=== PATIENT | male | born 1955 | race Caucasian/White ===

== ENCOUNTER 2020-11-29 10:42 | Emergency (ER) | payer MEDICARE, SELFPAY ==
[2020-11-29] VITALS (24 sets, daily range): BP systolic 82–137; BP diastolic 56–94; PULSE 77–101; RESP 14–25; TEMP 36.1–36.8; O2SAT 97–100
--- NOTE | ~2020-11-29 | XR_ITS ---
EXAMINATION: XR abdomen NG/feed tube insert EXAM DATE: 11/29/2020 15:41 INDICATION: Orogastric tube placement. TECHNIQUE: Frontal projection(s) of the abdomen for interpretation. There is no prior study for castillo lucero. FINDINGS: Feeding tube tip and side-port project over left upper quadrant, adequate. Some elevation of the left hemidiaphragm, but lung bases appear clear. Nonspecific upper abdominal bowel gas pattern . IMPRESSION: Orogastric tube in position. Reviewed, dictated and finalized at location G.
--- NOTE | 2020-11-29 10:54 | ECG_ITS ---
Measurements Intervals [place] Rate: 88 P: 72 ME: 169 QRS: 9 QRSD: 100 T: 109 QT: 338 QTc: 409 Interpretive Statements SINUS RHYTHM ST-T WAVE ABNORMALITY IN ANTEROLATERAL LEADS- CONSIDER ISCHEMIA BASELINE ARTIFACT- I, II, III, AVR, AVL, AVF, V1-V6 ABNORMAL ECG Electronically Signed On 11-29-2020 14:08:57 CDT by Mateus Correia D.O.
--- NOTE | 2020-11-29 11:11 | PC.NURSE ---
called lab and talked to brianna added on a Hepatic at 1112
[2020-11-29 11:16] LABS: Basophils Percent Auto 0.3 % (0.2-1.2); Eosinophils Percent Auto 0.2 % (0-4.4); Hematocrit 21.8 % (42.0-52.0); Hemoglobin 7.4 g/dL (14.0-18.0); Immature Granulocyte Absolute 0.08 K/mm3 (0.00-0.031); Immature Granulocyte Percent A 0.8 % (0-0.5); Lymphocytes Absolute Auto 3.69 K/mm3 (0.9-3.2); Lymphocytes Percent Auto 38.8 % (18.3-44.2); Mean Corpuscular HGB Conc 33.9 g/dl (32-36); Mean Corpuscular Hemoglobin 31.8 pg (26-34); Mean Corpuscular Volume 93.6 fl (80-100); Mean Platelet Volume 9.2 fl (7.4-10.4); Monocytes Absolute Auto 0.8 K/mm3 (0.1-0.6); Monocytes Percent Auto 7.9 % (2.6-8.5); Platelet Count Result 252 k/mm3 (150-375); Red Blood Count 2.33 M/mm3 (4.6-6.20); Red Cell Distribution Width 14.8 % (11.5-14.5); White Blood Count 9.5 K/mm3 (4.5-10.0)
[2020-11-29] MEDS: SODIUM CHLORIDE 0.9% IV 1,000 ML 999 ML IV CONT ×2 (11:20→13:50)
[2020-11-29 11:27] LABS: Anion Gap 6 mmol/L (8-16); Blood Urea Nitrogen 32 mg/dL (9-20); Calcium 8.6 mg/dL (8.4-10.2); Carbon Dioxide 27 mmol/L (22-30); Chloride 93 mmol/L (98-107); Estimated CRCL calculation 52 ml/min; Estimated Glomerular Filt Rate > 60; Glucose 100 mg/dL (75-110); Potassium 4.4 mmol/L (3.4-5.0); Sodium 126 mmol/L (137-145)
[2020-11-29 11:38] LABS: Lactic Acid Reflex 2.3 mmol/L (0.7-2.1)
[2020-11-29 11:47] LABS: Alanine Aminotransferase 62 U/L (4-50); Albumin Level 2.9 g/dL (3.5-5.1); Alkaline Phosphatase 78 U/L (38-126); Aspartate Amino Transferase 93 U/L (17-59); Bilirubin,Total 0.8 mg/dL (0.2-1.3)
[2020-11-29] MEDS: PANTOPRAZOLE SODIUM IV 40 MG VIAL 80 MG IV PUSH (11:56)
[2020-11-29 12:47] LABS: Add Urine Microscopic? NO; Appearance Urine Clear (Clear); Bilirubin Urine Negative (Negative); Blood Urine Negative (Negative); Color Urine Yellow (Yellow); Glucose Urine UA Negative (Negative); Ketones Urine Negative (Negative); Leukocyte Esterase Ur Negative LEU/UL (Negative); Nitrate Urine Negative (Negative); Protein Urine Negative (Negative); Specific Grav Ur 1.011 (1.001-1.035); Urobilinogen Urine Negative mg/dL (<2.0)
--- NOTE | 2020-11-29 13:23 | PC.NURSE ---
Patient requesting his step mother be called and updated with plan of care: Marcelina (Vel) [phone]
[2020-11-29] MEDS: SODIUM CHLORIDE 0.9% IV 250 ML 30 ML IV CONT (13:49)
--- NOTE | 2020-11-29 14:21 | PC.NURSE ---
Patient up to use urinal. Patient reports increased dyspnea with this exertion. He was assisted back onto the stretcher. No change in LOC noted. Patient tells me he uses oxygen at home at night and requests some oxygen. This was provided by nasal cannula at 2 liters. Patients Normal saline bolus was discontinued and LEEANNE ye was notified.
[2020-11-29 14:26] LABS: Reflex Lactic Acid Yes or No Add Lactic
[2020-11-29 15:40] LABS: Lactic Acid 3.9 mmol/L (0.7-2.1)
--- NOTE | 2020-11-29 15:43 | PC.NURSE ---
Benzocaine spray was used per verbal order of the ED PA to assist with NG tube placement.
--- NOTE | 2020-11-29 15:47 | ED.GENADULT ---
HPI - General Adult General Chief complaint: Recheck/Abnormal Lab/Rx Stated complaint: Low BP Time Seen by Provider: 11/29/20 11:10 Source: patient, family and RN notes reviewed Mode of arrival: ambulatory Limitations: no limitations History of Present Illness HPI narrative: Patient is a 65-year-old male who presents for evaluation of low blood pressures that have been noticed over the last several days at home patient notes he has also felt weak during this. Patient denies known etiology for this patient states that he has been taking ibuprofen for low back pain and also notes that he thought that it might be related to the muscle relaxer his doctor gave to him for his low back pain over the last week. Patient denies rectal bleeding melena fever chills URI symptoms Related Data Home Medications Medication Instructions Recorded Confirmed aspirin 81 mg chewable tablet 81 mg PO DAILY 05/23/20 11/21/20 metoprolol succinate 25 mg 25 mg PO BID 05/23/20 11/21/20 tablet,extended release 24 hr atorvastatin 20 mg tablet 20 mg PO DAILY 06/18/20 11/21/20 Allergies Allergy/AdvReac Type Severity Reaction Status Date / Time lorazepam [From Ativan] AdvReac Hallucinati Verified 11/29/20 10:53 ng Review of Systems Review of Systems: All systems reviewed & are unremarkable except as noted in HPI and below PMFSH Past Medical History Medical History (Updated 11/29/20 @ 19:25 by Patricio Nice PA-C) Arthralgia Bilateral hand numbness BMI 23.0-23.9, adult Chronic low back pain COPD (chronic obstructive pulmonary disease) Coronary artery disease Surgical History Surgical History History of cataract surgery Family History Family History Father , lung cancer Cancer Mother No problems noted. Sibling No problems noted. 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 HEAD: Normocephalic, atraumatic. EYES: PERRLA and EOMI. ENT: Nares clear, no rhinorrhea or epistaxis. Mucous membranes moist. NECK: Supple. No adenopathy or masses. CHEST: Clear to auscultation. No respiratory distress. No wheezes rales or rhonchi HEART: Regular rate and rhythm. No murmur heard. Normal peripheral pulses. ABDOMEN: Soft, nontender, nondistended, guaiac positive stools with melena around the rectum EXTREMITIES: Normal range of motion. No edema. SKIN: Warm, dry, no rash. NEURO: No focal deficits. Alert and oriented x3. Cranial nerves II through XII grossly intact PSYCH: Normal mood and affect. Course Reevaluation(s) Reevaluation #1: Patient resting in the room after the first unit of blood, patient with normal lung sounds and improvement of blood pressure and condition after the first unit of blood Date: 11/29/20 Time: 15:51 Reevaluation #2: Patient will be transferred to [facility], patient received 2 units of blood in the emergency department was given Lasix after the first. Patient hemodynamically stable with normalized blood pressure. Patient in the room appearing much better at this time resting comfortably Date: 11/29/20 Time: 19:23 Consultations Consultation #1: Called several of the manufacturing advisor at [facility] none of which are available this weekend to
[2020-11-29] MEDS: FUROSEMIDE INJ 40 MG/4 ML VIAL 20 MG IV PUSH (16:50)
--- NOTE | 2020-11-29 20:17 | PC.NURSE ---
called [place] for ETA update. ETA [id number] Called [facility] to request transport. declinded -No ALS truck tonight. Called [facility] to request transport. declined - Only 1 truck on tonight Called [facility] to request transport. declined. All trucks busy - Can call back in a few hours to see if a truck is available.
--- NOTE | 2020-11-29 22:25 | PC.NURSE ---
called [facility] for ETA update. ETA [id number]
--- NOTE | 2020-11-29 22:58 | PC.NURSE ---
[facility] here.
== END 2020-11-29 22:57 | disposition short-term general hospital (02) ==
PROVIDERS: Emergency Medicine Emergency Medical Services; Emergency Provider Emergency Medicine; PCP Family Medicine
DX: K92.2 Gastrointestinal hemorrhage, unspecified (principal); D64.9 Anemia, unspecified; J44.9 Chronic obstructive pulmonary disease, unspecified; I25.10 Atherosclerotic heart disease of native coronary artery without angina pectoris; M54.5 Low back pain; G89.29 Other chronic pain; Z98.49 Cataract extraction status, unspecified eye; Z79.82 Long term (current) use of aspirin; F17.210 Nicotine dependence, cigarettes, uncomplicated; R94.31 Abnormal electrocardiogram [ECG] [EKG]
CPT/HCPCS: 36415; 36430; 51701; 80048; 80076; 81003; 83605; 85025; 85610; 86850; 86900; 86901; 86920; 93005; 96365; 96366; 96375; 96376; 99285; A9270; C9113; J1940; J7030; J7050; J7060; P9016

== ENCOUNTER 2021-02-05 09:11 | Outpatient (CLI) | payer MEDICARE, SELFPAY ==
--- NOTE | 2021-02-05 11:00 | NEURO_ITS ---
Impression: # Complains of numbness of hands. # Bilateral Carpal Tunnel Syndrome. # Bilateral ulnar neuropathy; right non-localizing around the elbow and left localizing across the elbow. # Needle/EMG exam abnormal. Nerve Conduction Studies Anti Sensory Summary Table Stim Site NR Peak (ms) P-T Amp (?V) Site1 Site2 Delta-P (ms) Dist (cm) Peyman (m/s) Left Median Anti Sensory (2-3nd Digit) Wrist 4.9 13.4 Wrist 2-3nd Digit 4.9 14.0 29 Wrist 4.9 20.4 Wrist 2-3nd Digit 4.9 14.0 29 Right Median Anti Sensory (2-3nd Digit) Wrist 5.1 28.4 Wrist 2-3nd Digit 5.1 14.0 27 Wrist 5.2 20.8 Wrist 2-3nd Digit 5.1 14.0 27 Left Radial Anti Sensory (Base 1st Digit) Wrist 2.2 21.2 Wrist Base 1st Digit 2.2 0.0 Right Radial Anti Sensory (Base 1st Digit) Wrist 3.1 16.1 Wrist Base 1st Digit 3.1 0.0 Left Ulnar Anti Sensory (5th Digit) Wrist 3.4 40.7 Wrist 5th Digit 3.4 14.0 41 Right Ulnar Anti Sensory (5th Digit) Wrist 3.5 19.7 Wrist 5th Digit 3.5 14.0 40 Motor Summary Table Stim Site NR Onset (ms) O-P Amp (mV) Site1 Site2 Delta-0 (ms) Dist (cm) Peyman (m/s) Left Median Motor (Abd Poll Brev) Wrist 5.9 1.6 Elbow Wrist 5.9 30.0 51 Elbow 11.8 1.9 Right Median Motor (Abd Poll Brev) Wrist 5.2 1.8 Elbow Wrist 5.5 28.0 51 Elbow 10.7 1.5 Left Ulnar Motor (Abd Dig Minimi) Wrist 3.3 5.2 A Elbow Wrist 6.5 29.0 45 A Elbow 9.8 4.7 B Elbow Wrist 4.3 24.0 56 B Elbow 7.6 4.7 Right Ulnar Motor (Abd Dig Minimi) Wrist 3.6 5.7 A Elbow Wrist 6.0 28.0 47 A Elbow 9.6 4.6 B Elbow Wrist 4.5 21.0 47 B Elbow 8.1 3.2 F Wave Studies NR F-Lat (ms) L-R F-Lat (ms) Left Median (Mrkrs) (Abd Poll Brev) 30.70 0.76 Right Median (Mrkrs) (Abd Poll Brev) 29.94 0.76 Left Ulnar (Mrkrs) (Abd Dig Min) 31.37 0.55 Right Ulnar (Mrkrs) (Abd Dig Min) 30.82 0.55 EMG Side Muscle Nerve Root Ins Act Fibs Amp Dur Recrt Comment Right 1stDorInt Ulnar C8-T1 Nml Nml Nml >12ms Reduced Right Ext Indicis Radial (Post Int) C7-8 Nml Nml Nml Nml Nml Right Ext Digitorum Radial (Post Int) C7-8 Nml Nml Nml Nml Nml Right BrachioRad Radial C5-6 Nml Nml Nml Nml Nml Right PronatorTeres Median C6-7 Nml Nml Nml Nml Nml Right Abd Poll Brev Median C8-T1 Nml Nml Nml >12ms Reduced Left 1stDorInt Ulnar C8-T1 Nml Nml Nml >12ms Reduced Left Ext Indicis Radial (Post Int) C7-8 Nml Nml Nml Nml Nml Left Ext Digitorum Radial (Post Int) C7-8 Nml Nml Nml Nml Nml Left BrachioRad Radial C5-6 Nml Nml Nml Nml Nml Left PronatorTeres Median C6-7 Nml Nml Nml Nml Nml Left Abd Poll Brev Median C8-T1 Nml Nml Nml >12ms Reduced MTDD
== END 2021-02-05 09:12 | disposition home or self-care (01) ==
PROVIDERS: PCP Family Medicine; Visit Provider Family Medicine
DX: G56.03 Carpal tunnel syndrome, bilateral upper limbs (principal); G56.23 Lesion of ulnar nerve, bilateral upper limbs; R20.2 Paresthesia of skin
CPT/HCPCS: 95886; 95911

== ENCOUNTER 2022-10-26 08:44 | Outpatient (CLI) | payer MEDICARE, SELFPAY ==
[2022-10-26 10:12] LABS: Basophils Absolute Auto 0.1 K/mm3 (0.0-0.1); Basophils Percent Auto 1.5 % (0.2-1.2); Eosinophils Absolute Auto 0.3 K/mm3 (0-0.3); Eosinophils Percent Auto 5.7 % (0-4.4); Hematocrit 39.4 % (42.0-52.0); Hemoglobin 12.9 g/dL (14.0-18.0); Immature Granulocyte Absolute 0.02 K/mm3 (0.00-0.031); Immature Granulocyte Percent A 0.4 % (0-0.5); Lymphocytes Absolute Auto 1.79 K/mm3 (0.9-3.2); Mean Corpuscular HGB Conc 32.7 g/dl (32-36); Mean Corpuscular Hemoglobin 32.3 pg (26-34); Mean Corpuscular Volume 98.7 fl (80-100); Monocytes Absolute Auto 0.7 K/mm3 (0.1-0.6); Monocytes Percent Auto 12.2 % (2.6-8.5); Neutrophils Absolute Auto 2.6 K/mm3 (1.3-6.7); Neutrophils Percent Auto 47.2 % (45.5-73.1); Platelet Count Result 280 k/mm3 (150-375); Red Blood Count 3.99 M/mm3 (4.6-6.20); Red Cell Distribution Width 15.9 % (11.5-14.5); White Blood Count 5.4 K/mm3 (4.5-10.0)
[2022-10-26 10:27] LABS: Alanine Aminotransferase 28 U/L (6-50); Alkaline Phosphatase 220 U/L (38-126); Anion Gap 6 mmol/L (8-16); Aspartate Amino Transferase 59 U/L (17-59); Bilirubin,Total 1.8 mg/dL (0.2-1.3); Blood Urea Nitrogen 15 mg/dL (9-20); Calcium 9.2 mg/dL (8.4-10.2); Carbon Dioxide 28 mmol/L (22-30); Chloride 99 mmol/L (98-107); Cholesterol 203 mg/dL (0-200); Estimated Glomerular Filt Rate > 60; Glucose 94 mg/dL (65-110); HDL Direct 92 mg/dL; Sodium 133 mmol/L (137-145); Triglycerides 187 mg/dL (<150)
[2022-10-26 10:39] LABS: LDL Cholesterol Direct 90 mg/dL
[2022-10-26 10:56] LABS: Prostate Specific Antigen 1.9 ng/mL (< OR = 4.0)
== END 2022-10-26 08:45 | disposition home or self-care (01) ==
LOC: ANHLAB 08:45
PROVIDERS: PCP Family Medicine; Visit Provider Physician Assistant Medical
DX: I11.0 Hypertensive heart disease with heart failure (principal); I50.20 Unspecified systolic (congestive) heart failure; E78.5 Hyperlipidemia, unspecified; R73.01 Impaired fasting glucose; M25.50 Pain in unspecified joint; Z12.5 Encounter for screening for malignant neoplasm of prostate
CPT/HCPCS: 36415; 80053; 80061; 84153; 84443; 85025; G0103

== ENCOUNTER 2022-12-04 08:44 | Outpatient (CLI) | payer MEDICARE, SELFPAY ==
[2022-12-04 09:52] LABS: Hematocrit 41.3 % (42.0-52.0); Hemoglobin 13.9 g/dL (14.0-18.0); Mean Corpuscular HGB Conc 33.7 g/dl (32-36); Mean Corpuscular Hemoglobin 32.9 pg (26-34); Mean Corpuscular Volume 97.6 fl (80-100); Mean Platelet Volume 9.7 fl (7.4-10.4); Platelet Count Result 248 k/mm3 (150-375); Red Blood Count 4.23 M/mm3 (4.6-6.20); Red Cell Distribution Width 14.1 % (11.5-14.5); White Blood Count 6.4 K/mm3 (4.5-10.0)
== END 2022-12-04 08:45 | disposition home or self-care (01) ==
PROVIDERS: PCP Family Medicine; Visit Provider Nurse Practitioner Family
DX: E87.1 Hypo-osmolality and hyponatremia (principal); M25.50 Pain in unspecified joint
CPT/HCPCS: 36415; 85027

== ENCOUNTER 2025-01-23 10:36 | Outpatient (CLI) | payer MEDICARE, SELFPAY ==
--- NOTE | ~2025-01-23 | US_ITS ---
Clinical history:Mass on neck EXAM:Ultrasound soft tissue head and neck. History of neck surgery in May. TECHNIQUE:Multiple static grayscale images were obtained of the area of palpable concern along the right side of the neck. Comparisons:None available FINDINGS: There is a 5.2 x 5.3 x 4.9 cm heterogeneous mass in area of palpable concern along the right side of the neck. There is internal color Doppler flow. IMPRESSION: 1.There is a 5.2 x 5.3 x 4.9 cm heterogeneous mass in area of palpable concern along the right side of the neck. There is internal vascular flow. A CT of the soft tissues of the neck with contrast is recommended for further assessment. Reviewed, dictated and finalized at location Q.
[2025-01-23 11:15] LABS: Hematocrit 34.2 % (42.0-52.0); Hemoglobin 10.7 g/dL (14.0-18.0); Immature Granulocyte Percent A 0.1 % (0-0.5); Lymphocytes Absolute Auto 1.89 K/mm3 (0.9-3.2); Mean Corpuscular HGB Conc 31.3 g/dl (32-36); Mean Corpuscular Hemoglobin 25.7 pg (26-34); Mean Corpuscular Volume 82.2 fl (80-100); Nucleated Red Blood Cells Absolute Auto 0.000 K/mm3 (0.0-0.012); Nucleated Red Blood Cells Perc 0.0 % (0.0-0.2); Platelet Count Result 287 k/mm3 (150-375); Red Blood Count 4.16 M/mm3 (4.6-6.20); White Blood Count 7.9 K/mm3 (4.5-10.0)
[2025-01-23 11:39] LABS: Alanine Aminotransferase 13 U/L (6-50); Albumin Level 3.7 g/dL (3.5-5.1); Alkaline Phosphatase 113 U/L (38-126); Anion Gap 5 mmol/L (4-12); Aspartate Amino Transferase 27 U/L (17-59); Bilirubin,Total 0.6 mg/dL (0.2-1.3); Blood Urea Nitrogen 10 mg/dL (9-20); Calcium 9.1 mg/dL (8.4-10.2); Carbon Dioxide 28 mmol/L (22-30); Chloride 100 mmol/L (98-107); Cholesterol 159 mg/dL (0-200); Estimated Glomerular Filt Rate > 60; Glucose 93 mg/dL (65-110); HDL Direct 57 mg/dL; Sodium 133 mmol/L (137-145); Total Protein 7.4 g/dL (6.3-8.2); Triglycerides 59 mg/dL (<150)
[2025-01-23 11:47] LABS: Potassium 4.1 mmol/L (3.4-5.0)
[2025-01-23 12:14] LABS: Prostate Specific Antigen 6.6 ng/mL (< OR = 4.0); Thyroid Stimulating Hormone 3.410 uIU/mL (0.465-4.680)
--- OUTSIDE RECORDS SUMMARY | 2025-01-23 12:19 | XMS_ITS | Clinical Summary ---
Author Organization [facility] Address [address] [place] [address] Phone Care Team Providers Care Welfare Supervisor Name Role Phone Unavailable Primary Care Provider Unavailabl e Allergies Active Allergy Reactions Criticality Noted Date Comments Lorazepam Hallucination Medium 06/13/2024 Medications amiodarone (CORDARONE) 200 mg tablet Take 1 Tablet by mouth daily. 4 Active atorvastatin (LIPITOR) 20 mg tablet Take 20 mg by mouth daily. 2 Active folic acid (FOLVITE) 1 mg tablet Take 1 Tablet by mouth daily. 4 Active metoprolol succinate (TOPROL XL) 25 mg Extended Release 24 hour tablet Take 25 mg by mouth daily. Active pantoprazole (PROTONIX) 40 mg Tablet, Delayed Release (E.C.) Take 40 mg by mouth daily in the morning. 4 Active furosemide (LASIX) 20 mg tablet Take 20 mg by mouth daily. Active Breztri Aerosphere 160 mcg-9mcg-4.8mcg/ actuation HFA aerosol inhaler Take 2 Puffs by inhalation 2 times daily. Active acetaminophen (TYLENOL) 325 mg tablet Take 2 Tablets (650 mg) by mouth every 6 hours as needed for Other (See Comment) (See admin instructions). 5 Active cetirizine (ZyrTEC) 10 mg tablet Take 1 Tablet (10 mg) by mouth daily. 5 Active guaiFENesin (ROBITUSSIN) 100 mg/5 mL solution Take 10 mL (200 mg) by mouth every 4 hours as needed for Cough. 5 Active multivitamin tx with iron and folic acid tablet 18-400 mg-mcg Tablet Take 1 Tablet by mouth daily. 5 Active polyethylene glycol (MIRALAX) 17 gram Powder in Packet Take 1 Packet (17 Grams) by mouth 1 time daily as needed for Constipation. 5 Active sennosides-docus ate sodium (SENNA-S) 8.6-50 mg tablet Take 1 Tablet by mouth 2 times daily. 60 Tablet 5 Active thiamine mononitrate (VITAMIN B-1) 100 mg tablet Take 1 Tablet (100 mg) by mouth daily. 30 Tablet 5 Active HYDROcodone-acet aminophen (NORCO) 5-325 mg tabletIndication s:Closed wedge compression fracture of L1 vertebra, initial encounter ([facility]) Take 1 Tablet by mouth every 4 hours as needed for Pain, Break-Through. Max Daily Amount: 6 Tablets 90 Tablet 5 Active Active Problems Problem Noted Date Diagnosed Date Odontoid fracture 06/21/2024 GERD (gastroesophageal reflux disease) 5 Closed L1 vertebral fracture 06/14/2024 Elevated LFTs 06/14/2024 Alcohol dependence 06/14/2024 Leukocytosis (leucocytosis) 06/14/2024 Chronic anemia 06/14/2024 Hyponatremia 06/14/2024 Hypokalemia 06/14/2024 Acute pancreatitis 06/14/2024 Protein-calorie malnutrition, moderate Chronic obstructive pulmonar y disease with acute exacerbation 11/30/2020 Benign hypertension 09/08/2018 Encounters Date Type Department Care Team Description 01/09/2025 External Device Data [facility] ABSTRACTION Provider, Abstract 12/12/2024 External Device Data [facility] ABSTRACTION Provider, Abstract 11/07/2024 External Device Data [facility] ABSTRACTION Provider, Abstract 10/24/2024 External Device Data [facility] ABSTRACTION Provider, Abstract from Last 3 Months Social History Tobacco Use Types Packs/Day Years Used Date Smoking Tobacco: Former Cigarettes Q uit: 2020 Tobacco Cessation:Counseling Given: Not Answered Alcohol Use Standard Drinks/Week Comments Yes 0 (1 standard drink = 0.6 oz pur e alcohol) Feeling Safe Answer Date Recorded Are you in a relationship wi th someone who hurts you emotionally and/or physically? No 06/20/2024 Food Insecurity Answer Date Recorded Patient needs follow up regardin 09/12/2024 Transportation Needs Answer Date Record ed Patient needs follow up regardin 09/12/2024 Housing Stability Answer Date Recorded Social/Environmental Concerns No concerns Utility Needs Answer Date Recorded Patient needs follow up regardin 09/12/2024 Sex and Gender Information Value Date Recorded Sex Assigned at Not on file Legal Sex Male 1:53 PM VOLTAGE INSPECTOR Gender Identity Not on file Sexual Orientation Not on file Last Filed Vital Signs Vital Sign Reading Time Taken Comments Blood Pressure 104/61 07/01/2024 8:56 AM VOLTAGE INSPECTOR Pulse 98 07/01/2024 8:56 AM VOLTAGE INSPECTOR Temperature 36.9 C (98.4 F) 06/30/2024 9:06 PM VOLTAGE INSPECTOR Respiratory Rate 18 06/30/2024 9:06 PM VOLTAGE INSPECTOR Oxygen Saturation 94% 07/01/2024 8:56 AM VOLTAGE INSPECTOR Inhaled Oxygen Concentration - - Weight 65.8 kg (145 lb) 07/01/2024 9:00 AM VOLTAGE INSPECTOR Height 167.6 cm (5' 6) 06/22/2024 9:00 AM VOLTAGE INSPECTOR Body Mass Index 23.4 06/22/2024 9:00 AM VOLTAGE INSPECTOR Plan of Treatment Health Maintenance Due Date Last Done Comments DTAP/TDAP/TD VACCINES (1 - Tdap) 1973 PNEUMOCOCCAL VACCINE 50+ YEARS (1 of 2 - PCV) 05/08/19 73 COLORECTAL SCREENING 1999 Colorectal Cancer Screening 1999 FIT-DNA Q 3 years 1999 FIT/FOBT Q 1 year 1999 Flex Sig/CT Colonography Q 5 years 1999 ZOSTER VACCINE (1 of 2) 2004 RSV VACCINE (60+ or ) (1 - Risk 60-74 years 1-dose series) 2014 Abdominal Aortic Aneurysm (AAA) Screening 2019 INFLUENZA VACCINE (#1) 2024 03/19/2017 Medical Devices Implanted Type Area Chinchilla Farmer Device Identifier Shelf Expiration Date Model / Serial / Lot Infuse Protein Kit Xx-Sm [id number] - [id number] Implanted:Qty : 1 on 06/16/2024 by Bennie Murray MD at [facility] Biological N/A: Spine Cervical Anterior [employer] [id number] 03/17/2025 [id number] / / [id number] C Hemostatic Surgiflo 8ml W/ Thrombin 2994 - [id number] Implanted:Qty : 1 on 06/16/2024 by Bennie Murray MD at [facility] Hemostatic N/A: Spine Cervical Anterior [employer] 07/14/2025 [id number] / / [id number] 36mm Screw Implanted:Qty : 1 on 06/16/2024 by Bennie Murray MD at [facility] N/A: Spine Cervical Anterior [employer]- SOFAMOR [employer]ANEK [id number] / LOAD NO 16 / STERILIZE D Description:RE [id number] Insurance MEDICARE PART A AND B Advance Directives For more information, please contact: [phone] * Full Code (Latest Code Status on File) Date Activated Date Inactivated Comments 06/20/2024 4:06 PM 07/01/2024 5:21 PM * Full Code Date Activated Date Inactivated Comments 06/16/2024 6:21 PM 06/20/2024 3:53 PM * Full Code Date Activated Date Inactivated Comments 06/14/2024 3:00 AM 06/16/2024 6:21 PM
--- OUTSIDE RECORDS SUMMARY | 2025-01-23 12:19 | XMS_ITS | Clinical Summary ---
Author Organization [facility] Address [address] [place] [address] Care Team Providers Care Agent Ticketing Gate Name Role Phone Unavailable Primary Care Provider Unavailabl e Source Comments [facility],non-owned Affiliates and Associated Physician Practices is amultiple site organization consisting of ambulatory clinics and hospital sitesin [place], [place], [place] and [place]. This disclosure is being madepursuant to the Care Everywhere program and may not contain all information available regarding this patient. Last updated 18.[facility] Allergies No known active allergies Immunizations Immunization Administration Dates Next Due INFLUENZA VACCINE, QUADR. (F LUZONE; FLULAVAL; FLUARIX; AFLURIA QUADRIVALENT; 6MO+), 0.5 ML (IIV4) 03/19/2017 Social History Tobacco Use Types Packs/Day Years Used Date Smoking Tobacco: Never Assessed Sex and Gender Information Value Date Recorded Sex Assigned at Not on file Legal Sex Male 11:12 AM CDT Gender Identity Not on file Sexual Orientation Not on file Plan of Treatment Health Maintenance Due Date Last Done Comments COLOGUARD (AGES 45-75) - COL ON CA SCREENING 1954 COLON MONITORING 1954 COLONOSCOPY - COLON CA SCREENING 1954 CT COLONOGRAPHY - COLON CA SCREENING 1954 Colorectal Cancer Screening 1954 FIT - COLON CA SCREENING 1954 FLEX SIG - COLON CA SCREENING 1954 LIPID TESTING 1954 HEPATITIS C SCREENING 05/03/1972 DTAP/TDAP/TD VACCINES (1 - Tdap) 1973 PNEUMOCOCCAL VACCINE 50+ (1 of 1 - PCV) 2004 ZOSTER VACCINE (1 of 2) 2004 DEPRESSION SCREENING 05/17/2024 COVID-19 VACCINE ( - 2023-2 5 season) 2025 INFLUENZA VACCINE (#1) 2025 03/19/2017 Respiratory Syncytial Virus (RSV) Vaccine Pt: or over 60 yrs (1 - 1-dose 75+ series) 2029 HEPATITIS B VACCINE Aged Out No longe r eligible based on patient's age to complete this topic HIB VACCINE Aged Out No longer eligi ble based on patient's age to complete this topic HPV VACCINE Aged Out No longer eligi ble based on patient's age to complete this topic MENINGOCOCCAL (Group B) VACC INE SHARED DECISION-MAKING Aged Out No longer eligibl e based on patient's age to complete this topic MENINGOCOCCAL GROUPS A/C/Y/W VACCINE Aged Out No longer eligible b ased on patient's age to complete this topic Insurance [facility]
== END 2025-01-23 10:37 | disposition home or self-care (01) ==
PROVIDERS: PCP Family Medicine; Visit Provider Nurse Practitioner Adult Health
DX: E78.5 Hyperlipidemia, unspecified (principal); I10 Essential (primary) hypertension; Z13.29 Encounter for screening for other suspected endocrine disorder; R22.1 Localized swelling, mass and lump, neck; I50.22 Chronic systolic (congestive) heart failure; Z12.5 Encounter for screening for malignant neoplasm of prostate; R22.0 Localized swelling, mass and lump, head
CPT/HCPCS: 36415; 76536; 80053; 80061; 84153; 84443; 85025; G0103

== ENCOUNTER 2025-01-24 10:06 | Outpatient (CLI) | payer MEDICARE, SELFPAY ==
--- NOTE | ~2025-01-24 | CT_ITS ---
EXAMINATION: CT soft tissue neck w con DATE: 01/24/2025 10:50 INDICATION: Neck mass TECHNIQUE: Computed tomography (CT) of the neck was performed with 75 mL Omnipaque-350 intravenous contrast. Automated exposure control and iterative reconstruction technique were employed. The dose-length product was 421.25 mGy-cm. COMPARISON: Ultrasound dated 01/23/2025 FINDINGS: There is a 5.2 x 3.7 x 5.2 cm mass positioned deep to the angle of the mandible extending caudally along the anterior margin of the right jugular vein which is concerning for malignancy either lymphoma or metastatic disease. No other abnormal masses or pathologically enlarged lymph nodes identified. Changes of bilateral intraocular lens replacement. Orbits are otherwise normal. The paranasal sinuses are clear. Trace left mastoid effusion. The right mastoid air cells and bilateral middle ear cavities are clear. Submandibular and parotid glands are normal and symmetric. 5 mm coarse calcification within the right thyroid lobe. The contrast opacified right jugular vein occupies only a portion of the lateral aspect of the jugular foramen, unclear whether the unopacified portion of the foramen represents a filling defect within the vessel or a soft tissue density lesion along side the jugular vein. There are a chronic calcification at the bilateral carotid bulbs without hemodynamically significant stenosis. There are a few small dystrophic calcifications at the right lingual tonsil. Airway is unremarkable. Mild emphysema in the visualized upper lungs. Visualized superior mediastinum is unremarkable. Moderate to severe cervical spondylosis. IMPRESSION: 1. Instrumented 5.2 x 3.7 x 5.2 cm mass in the right neck position deep to the angle of the mandible along the anterior margin of the right internal jugular vein which concerning for malignancy including lymphoma or metastatic disease. Recommend ultrasound-guided core needle biopsy. 2. Contrast enhancement of the right internal jugular vein occupies only the lateral third of the jugular foramen which suggests either internal thrombosis or external nonspecific peripheral compressing mass. Could consider pre and postcontrast MRI for further evaluation. Reviewed, dictated and finalized at location A. IMPRESSION: 1. Instrumented 5.2 x 3.7 x 5.2 cm mass in the right neck position deep to the angle of the mandible along the anterior margin of the right internal jugular v ein which concerning for malignancy including lymphoma or metastatic disease. R ecommend ultrasound-guided core needle biopsy. 2. Contrast enhancement of the right internal jugular vein occupies only the la teral third of the jugular foramen which suggests either internal thrombosis or external nonspecific peripheral compressing mass. Could consider pre and postc ontrast MRI for further evaluation.
--- OUTSIDE RECORDS SUMMARY | 2025-01-24 10:57 | XMS_ITS | Clinical Summary ---
Author Organization [facility] Address [address] [place] [address] Phone Care Team Providers Care Wastewater Project Manager Name Role Phone Unavailable Primary Care Provider [...] compression fracture of L1 vertebra, initial encounter ([facility]) Take 1 Tablet by mouth every 4 [...] on file Legal Sex Male 1:53 PM SUPERSONIC ENGINEER Gender Identity Not on file Sexual Orientation Not on file Last Filed Vital Signs Vital Sign Reading Time Taken Comments Blood Pressure 104/61 07/01/2024 8:56 AM SUPERSONIC ENGINEER Pulse 98 07/01/2024 8:56 AM SUPERSONIC ENGINEER Temperature 36.9 C (98.4 F) 06/30/2024 9:06 PM SUPERSONIC ENGINEER Respiratory Rate 18 06/30/2024 9:06 PM SUPERSONIC ENGINEER Oxygen Saturation 94% 07/01/2024 8:56 AM SUPERSONIC ENGINEER Inhaled Oxygen Concentration - - Weight 65.8 kg (145 lb) 07/01/2024 9:00 AM SUPERSONIC ENGINEER Height 167.6 cm (5' 6) 06/22/2024 9:00 AM SUPERSONIC ENGINEER Body Mass Index 23.4 06/22/2024 9:00 AM SUPERSONIC ENGINEER Plan of Treatment Health Maintenance Due Date [...] 2024 03/19/2017 Medical Devices Implanted Type Area Wash House Supervisor Device Identifier Shelf Expiration Date Model / Serial / Lot Infuse Protein Kit Xx-Sm [id number] - [id number] Implanted:Qty : 1 on 06/16/2024 by Bennie Murray MD at [facility] Biological N/A: Spine Cervical Anterior [employer] [id number] 03/17/2025 [id number] / / [id number] C Hemostatic Surgiflo 8ml W/ Thrombin 2994 - [id number] Implanted:Qty : 1 on 06/16/2024 by Bennie Murray MD at [facility] Hemostatic N/A: Spine Cervical Anterior [employer] 07/14/2025 [id number] / / [id number] 36mm Screw Implanted:Qty : 1 on 06/16/2024 by Bennie Murray MD at [facility] N/A: Spine Cervical Anterior [employer] [id number] / LOAD NO 16 / STERILIZE D Description:RE [id number] Insurance MEDICARE PART A AND B Advance Directives For more information, please contact: [phone] * Full Code (Latest Code Status on File) Date Activated Date Inactivated Comments 06/20/2024 4:06 PM 07/01/2024 5:21 PM * Full Code Date Activated Date Inactivated Comments 06/16/2024 6:21 PM 06/20/2024 3:53 PM * Full Code Date Activated Date Inactivated Comments 06/14/2024 3:00 AM 06/16/2024 6:21 PM
--- OUTSIDE RECORDS SUMMARY | 2025-01-24 10:57 | XMS_ITS | Clinical Summary ---
Author Organization [facility] Address [address] [place] [address] Care Team Providers Care Dye Reel Operator Helper Name Role Phone Unavailable Primary Care Provider Unavailabl e Source Comments [facility],non-owned Affiliates and Associated Physician Practices is amultiple site organization consisting of ambulatory clinics and hospital sitesin [place], [place], [place] and [place]. This disclosure is being madepursuant to the Care Everywhere program and may not contain all information available regarding this patient. Last updated 18.[facility] Allergies No known active allergies Immunizations Immunization [...] patient's age to complete this topic Insurance [facility]
[2025-01-24 11:12] LABS: Hematocrit 32.0 % (42.0-52.0); Hemoglobin 9.8 g/dL (14.0-18.0); Immature Granulocyte Percent A 0.5 % (0-0.5); Lymphocytes Absolute Auto 1.48 K/mm3 (0.9-3.2); Mean Corpuscular HGB Conc 30.6 g/dl (32-36); Mean Corpuscular Hemoglobin 25.4 pg (26-34); Mean Corpuscular Volume 82.9 fl (80-100); Nucleated Red Blood Cells Absolute Auto 0.000 K/mm3 (0.0-0.012); Nucleated Red Blood Cells Perc 0.0 % (0.0-0.2); Platelet Count Result 259 k/mm3 (150-375); Red Blood Count 3.86 M/mm3 (4.6-6.20); White Blood Count 7.5 K/mm3 (4.5-10.0)
[2025-01-24 11:33] LABS: Anion Gap 3 mmol/L (4-12); Blood Urea Nitrogen 10 mg/dL (9-20); Calcium 8.3 mg/dL (8.4-10.2); Carbon Dioxide 28 mmol/L (22-30); Chloride 102 mmol/L (98-107); Estimated Glomerular Filt Rate > 60; Glucose 87 mg/dL (65-110); Iron 25 ug/dL (49-181); Potassium 4.2 mmol/L (3.4-5.0); Sodium 133 mmol/L (137-145)
[2025-01-24 11:42] LABS: Percent Iron Saturation 7 % (20-50)
[2025-01-24 12:10] LABS: Prostate Specific Antigen 6.4 ng/mL (< OR = 4.0)
== END 2025-01-24 10:07 | disposition home or self-care (01) ==
PROVIDERS: PCP Family Medicine; Visit Provider Nurse Practitioner Adult Health
DX: D64.9 Anemia, unspecified (principal); E78.5 Hyperlipidemia, unspecified; R97.20 Elevated prostate specific antigen [PSA]; E87.1 Hypo-osmolality and hyponatremia; R93.89 Abnormal findings on diagnostic imaging of other specified body structures
CPT/HCPCS: 36415; 70491; 80048; 83540; 83550; 84153; 85025; Q9967

== ENCOUNTER 2025-01-26 10:32 | Outpatient (CLI) | payer MEDICARE, SELFPAY ==
--- NOTE | ~2025-01-26 | MR_ITS ---
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 Localized swelling, mass or lump. TECHNIQUE: Magnetic resonance imaging (MRI) of the face and neck was performed without and with 15 mL Multihance intravenous contrast. A marker was placed over the mass. Sequences included axial, sagittal and coronal T1-weighted FSE, sagittal and coronal T2-weighted FS FSE, axial T2-weighted FSE, axial T1- weighted FS FSE and post contrast axial, sagittal and coronal T1-weighted FS FSE were also obtained. COMPARISON: CT dated 01/24/2025 FINDINGS: Ventilation is somewhat limited by small to moderate amount of motion artifact on multiple sequences. Again seen is a 6.2 x 4.0 x 4.8 cm heterogeneously enhancing mass situated posterior and deep to the angle of the mandible and along the anterior margin of the right internal jugular vein and common carotid artery. There is no evident flow void in the right internal jugular vein at the level of the mass. It is unclear whether the jugular vein at this level is decompressed or whether the mass invades and occludes the vessel. More proximally an ovoid right jugular vein flow void with smooth margins can be seen extending through but not filling the right jugular foramen. There appears to be some enhancement separate from the jugular vein within the foramen which appears enlarged caudally but with smooth margins to the bone on prior CT. Differential would include eccentric thrombus within the vessel compressed peripherally with smooth margins versus a mass external to the jugular vein within the foramen with differential including jugular schwannoma or paraganglioma. Aside from the mass which could represent an enlarged lymph node there is no other pathologically enlarged cervical or facial lymphadenopathy. Changes of bilateral intraocular lens replacement. Orbits are otherwise normal. Mild mucosal thickening in the bilateral ethmoid sinuses. Moderate-sized right and small left mastoid effusions. Severe cervical spondylosis. IMPRESSION: 1. 6.2 x 4.0 x 4.8 cm heterogeneously enhancing mass situated deep and posterior to the angle of the mandible concerning for malignancy. Recommend ultrasound- guided core needle biopsy. 2. Again seen is enhancement in the enlarged inferior aspect of the right jugular foramen which appears separate from the relatively well-defined ovoid right jugular vein flow void. Could not exclude thrombus compressed to the periphery of the vessel still yielding an ovoid flow-void however is more co ncerning for a mass within the foramen with differential including jugular schwannoma or jugular paraganglioma. Reviewed, dictated and finalized at location A. IMPRESSION: 1. 6.2 x 4.0 x 4.8 cm heterogeneously enhancing mass situated deep and posterio r to the angle of the mandible concerning for malignancy. Recommend ultrasound- guided core needle biopsy. 2. Again seen is enhancement in the enlarged inferior aspect of the right jugul ar foramen which appears separate from the relatively well-defined ovoid right jugular vein flow void. Could not exclude thrombus compressed to the periphery of the vessel still yielding an ovoid flow-void however is more concerning for a mass within the foramen with differential including jugular schwannoma or jug ular paraganglioma.
--- OUTSIDE RECORDS SUMMARY | 2025-01-26 11:20 | XMS_ITS | Clinical Summary ---
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 Gender Identity Not on file Sexual Orientation Not on file Last Filed Vital Signs Vital Sign Reading Time Taken Comments Blood Pressure 104/61 07/01/2024 8:56 AM PROPERTY DISPOSAL MANAGER Pulse 98 07/01/2024 8:56 AM PROPERTY DISPOSAL MANAGER Temperature 36.9 C (98.4 F) 06/30/2024 9:06 PM PROPERTY DISPOSAL MANAGER Respiratory Rate 18 06/30/2024 9:06 PM PROPERTY DISPOSAL MANAGER Oxygen Saturation 94% 07/01/2024 8:56 AM PROPERTY DISPOSAL MANAGER Inhaled Oxygen Concentration - - Weight 65.8 kg (145 lb) 07/01/2024 9:00 AM PROPERTY DISPOSAL MANAGER Height 167.6 cm (5' 6) 06/22/2024 9:00 AM PROPERTY DISPOSAL MANAGER Body Mass Index 23.4 06/22/2024 9:00 AM PROPERTY DISPOSAL MANAGER Plan of Treatment Health Maintenance Due Date [...] 2024 03/19/2017 Medical Devices Implanted Type Area Fitting Room Attendant Device Identifier Shelf Expiration Date Model / Serial / Lot Infuse Protein Kit Xx-Sm [id number] - [id number] Implanted:Qty : 1 on 06/16/2024 by Bennie Murray MD at [facility] Biological N/A: Spine Cervical Anterior [employer] [id number] 03/17/2025 [id number] / / [id number] C Hemostatic Surgiflo 8ml W/ Thrombin 2994 - [id number] Implanted:Qty : 1 on 06/16/2024 by Bennie Murray MD at [facility] Hemostatic N/A: Spine Cervical Anterior [employer] 07/14/2025 2994 / / [id number] 36mm Screw Implanted:Qty : 1 on 06/16/2024 by Bennie Murray MD at [facility] N/A: Spine Cervical Anterior [employer] [id number] / LOAD NO 16 / STERILIZE D Description:RE [id number] Insurance MEDICARE PART A AND B Advance Directives For more information, please contact: [phone] * Full Code (Latest Code Status on File) Date Activated Date Inactivated Comments 06/20/2024 4:06 PM 07/01/2024 5:21 PM * Full Code Date Activated Date Inactivated Comments 06/16/2024 6:21 PM 06/20/2024 3:53 PM * Full Code Date Activated Date Inactivated Comments 06/14/2024 3:00 AM 06/16/2024 6:21 PM
--- OUTSIDE RECORDS SUMMARY | 2025-01-26 11:20 | XMS_ITS | Clinical Summary ---
Author Organization [facility] Address [address] [place] [address] Care Team Providers Care Oven Operator Automatic Name Role Phone Unavailable Primary Care Provider Unavailabl e Source Comments [facility],non-owned Affiliates and Associated Physician Practices is amultiple site organization consisting of ambulatory clinics and hospital sitesin [place], [place], [place] and [place]. This disclosure is being madepursuant to the Care Everywhere program and may not contain all information available regarding this patient. Last updated 18.[facility] Allergies No known active allergies Immunizations Immunization [...] age to complete this topic Insurance [facility]
== END 2025-01-26 10:33 | disposition home or self-care (01) ==
PROVIDERS: PCP Family Medicine; Visit Provider Family Medicine
DX: I82.C11 Acute embolism and thrombosis of right internal jugular vein (principal); R22.0 Localized swelling, mass and lump, head
CPT/HCPCS: 70543; A9577

== ENCOUNTER 2025-02-22 22:47 | Inpatient (IN) | payer MEDICARE, SELFPAY ==
--- NOTE | ~2025-02-22 | XR_ITS ---
Examination: XR chest 1V portable Clinical History: dyspnea Comparison: None Technique: Portable AP Findings: Cardiomegaly. Elevated left hemidiaphragm, associated basilar atelectasis. Lungs otherwise clear. No acute bony abnormality. IMPRESSION: 1. No acute cardiopulmonary findings given portable technique. Reviewed, dictated and finalized at location R.
--- NOTE | ~2025-02-22 | XR_ITS ---
EXAMINATION: XR chest PICC line DATE: 02/23/2025 13:36 INDICATION: PICC line insertion TECHNIQUE: frontal view of the chest was obtained. COMPARISON: Chest radiograph dated 03/04/2025 FINDINGS: Left upper extremity peripherally inserted central venous catheter (PICC) tip at the caudal superior vena cava. Elevation the left hemidiaphragm. Opacities along the bilateral lung bases. Blunting at the left costophrenic angle consistent with small left pleural effusion. No pneumothorax or right-sided pleural effusion. Cardiomegaly. Atherosclerotic aorta. IMPRESSION: 1. Left upper extremity PICC line tip at the caudal superior vena cava. 2. Unchanged elevation left hemidiaphragm left pleural effusion and mild bibasilar opacities which could represent atelectasis or pneumonia. Reviewed, dictated and finalized at location A. IMPRESSION: 1. Left upper extremity PICC line tip at the caudal superior vena cava. 2. Unchanged elevation left hemidiaphragm left pleural effusion and mild bibasi lar opacities which could represent atelectasis or pneumonia.
--- NOTE | ~2025-02-22 | CT_ITS ---
CTA CHEST CT ABDOMEN PELVIS CLINICAL HISTORY: dyspnea, tachypnea . COMPARISON: Chest x-ray hours prior TECHNIQUE: Helical CT performed from thoracic inlet to symphysis pubis 100 mL Omnipaque 350 Coronal, sagittal reformats. Multiplanar MIPS CT images acquired with automatic exposure control for dose reduction DLP: 1196 mGy-cm FINDINGS: CHEST- Thoracic Aorta: No dissection. Upper limit of normal in size. Atherosclerotic disease Pulmonary arteries: Normal caliber. No PE. Lungs/Pleura: Emphysema. Eventration left hemidiaphragm, associated basilar atelectasis. Small left effusion Heart: Cardiomegaly. Coronary artery calcifications. Tracheobronchial tree: Patent. Nodes: No enlarged nodes. Bones: No acute bony abnormality. Soft tissues: Unremarkable. ABDOMEN/PELVIS- Liver: Steatosis. Gallbladder: Stones. Spleen: Unremarkable. Pancreas: A few calcifications within head. Adrenal glands: Unremarkable. Kidneys: Cysts. Right kidney- No hydronephrosis. No renal stones. Left kidney- No hydronephrosis. No renal stones. Distal esophagus/stomach: Unremarkable. Small bowel loops: Normal caliber and wall thickness. Colon: Short segment wall thickening descending segment. Normal RLQ appendix. Nodes: No enlarged nodes. Peritoneum: No ascites. No free air. Urinary bladder: Unremarkable. Prostate: Unremarkable. Left hydrocele. Bones: Superior endplate compression fracture L1. Soft tissues: Small umbilical hernia with fat. Abdominal aorta: Unremarkable. Atherosclerotic disease. IVC: Unremarkable. Main portal vein, SMV: Patent. IMPRESSION: CHEST- 1. No acute cardiopulmonary findings. 2. Except small left pleural effusion. ABDOMEN/PELVIS- 1. Suspect colitis. Recommend colonoscopy given focal thickening within descending segment. 2. Otherwise no acute abnormality within abdomen or pelvis. 3. L1 compression fracture. 4. Additional findings per above. Reviewed, dictated and finalized at location R. IMPRESSION: CHEST- 1. No acute cardiopulmonary findings. 2. Except small left pleural effusion. ABDOMEN/PELVIS- 1. Suspect colitis. Recommend colonoscopy given focal thickening within descen ding segment. 2. Otherwise no acute abnormality within abdomen or pelvis. 3. L1 compression fracture. 4. Additional findings per above.
--- NOTE | ~2025-02-22 | US_ITS ---
EXAMINATION: US abdomen limited DATE: 02/23/2025 18:58 INDICATION: Cholelithiasis. Transaminitis. TECHNIQUE: Multiple grayscale and Doppler ultrasound images of the abdomen were obtained. COMPARISON: CT dated 02/23/2025 FINDINGS: The pancreatic head and body are normal in appearance. The pancreatic tail is not visualized. Liver has normal contour, with a smooth surface. There is increased parenchymal echogenicity and coarsened echotexture consistent with diffuse hepatic steatosis. No liver lesion identified. No intrahepatic biliary duct dilation suspected. There is pulsatile bidirectional flow in the portal vein most suggestive of tricuspid regurgitation. Visualized proximal inferior vena cava is normal. Small amount of echogenic and shadowing gallstones the dependent aspect of the gallbladder which is dilated to 4.5 cm. Common bile duct measures 4 mm in maximal diameter. Small right pleural effusion. IMPRESSION: 1. Cholelithiasis with no intra-axial hepatic biliary ductal dilation or findings to suggest acute cholecystitis. 2. Pulsatile bidirectional flow in the portal vein most consistent with tricuspid regurgitation. 3. Small right pleural effusion. Reviewed, dictated and finalized at location A. IMPRESSION: 1. Cholelithiasis with no intra-axial hepatic biliary ductal dilation or findin gs to suggest acute cholecystitis. 2. Pulsatile bidirectional flow in the portal vein most consistent with tricusp id regurgitation. 3. Small right pleural effusion.
--- NOTE | ~2025-02-22 | CT_ITS ---
EXAMINATION: CT soft tissue neck w con DATE: 02/23/2025 01:38 INDICATION: Neck mass. TECHNIQUE: Computed tomography (CT) of the neck was performed with 75 mL Omnipaque-350 intravenous contrast. Automated exposure control and iterative reconstruction technique were employed. The dose-length product was 469.37 mGy-cm. COMPARISON: Neck CT 01/24/2025 FINDINGS: There is mild emphysema. There is a small left pleural effusion. There is a 6.5 x 4.2 cm nodule mass in the high right internal jugular chain. 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 There are likely changes of ocular lens replacement surgeries. The mastoid air cells are normal. There is mild mucosal thickening in the ethmoid sinuses. There is severe cervical spondylosis. There is a type II odontoid fracture with screw fixation without bridging bone. There is mild chronic height loss at T4 vertebral body. IMPRESSION: 1. Stable enlarged right high internal jugular chain alexis mass, consistent with metastatic squamous cell carcinoma or less likely lymphoma. Ultrasound-guided core needle biopsy is recommended. 2. Left pleural effusion. Reviewed, dictated and finalized at location E. IMPRESSION: 1. Stable enlarged right high internal jugular chain alexis mass, consistent wit h metastatic squamous cell carcinoma or less likely lymphoma. Ultrasound-guided core needle biopsy is recommended. 2. Left pleural effusion.
[2025-02-22 22:39] VITALS: BP 139/78; PULSE 124; RESP 20; TEMP 36.3; O2SAT 93
--- NOTE | 2025-02-22 22:56 | ED_ITS ---
HPI - SOB/Dyspnea General Chief Complaint: Shortness of Breath/Dyspnea Stated Complaint: DIFFICULTY IN BREATHING SINCE FALL YESTERDAY 02/21 Time Seen by Provider: 02/22/25 22:50 Source: patient Mode of arrival: EMS Limitations: no limitations History of Present Illness HPI Narrative: Patient is a 69-year-old male presents to the emergency department complaining of difficulty breathing. Patient notes that the difficulty breathing is been building up over the past days incidental fall yesterday. Patient has a has a history of COPD, worse through the years of mental oxygen at baseline as wear this as prescribed. Patient has not been taking much of any breathing treatments at home. Patient notes that it feels better when he is laying on his left side in terms of his breathing. Patient notes he had a dose of Lasix yesterday. Patient admits to regular urine output, denies any melena or hematochezia. Patient denies any focal weakness or numbness. Patient admits to a chronic cough unchanged. Patient denies any chest pain. Patient admits to being recently diagnosed with a neck mass, unsure if it is overall status and prognosis on his right neck. Denies nausea or vomiting or abdominal pain. Related Data Home Medications ?Medication ?Instructions ?Recorded ?Confirmed ?Last Taken ?Type budesonide 0.5 mg/2 mL suspension 0.5 mg inhalation BI D PRN 09/09/23 01/23/25 Unknown History for nebulization (Pulmicort) budesonide 160 mcg-glycopyr 9 2 inh inhalation BID 01/23/25 Unknown History mcg-formot 4.8 mcg/actuation HFA inhaler (Breztri [place]) docusate sodium 100 mg capsule 100 mg PO BID 09/09/23 01/23/25 Unknown History (Colace) metoprolol tartrate 25 mg tablet 25 mg PO BID 09/09/23 01/23/25 Unknown History ondansetron HCl 4 mg tablet 4 mg PO Q8H PRN 09/09/23 0 01/23/25 Unknown History polyethylene glycol 3350 17 17 g PO DAILY 09/09/2302/08 Unknown History gram/dose oral powder (Miralax) thiamine HCl (vitamin B1) 100 mg 100 mg PO DAILY 09/0801/23/25 Unknown History tablet Allergies Allergy/AdvReac Type Severity Reaction Status Date / Time lorazepam (From Ativan) AdvReac Hallucinati Verified 02/22/25 23:07 ng Review of Systems 2 Review of Systems: A 10 system review of systems was completed on the patient and is negative except for what is stated in the HPI. Nursing and ancillary documentation was reviewed. [facility]LY [facility] Past Medical History Medical History (Updated 02/23/25 @ 07:24 by Sami Corado DO) Anxiety about health Occlusion of right jugular vein Abnormal CT scan Abnormal finding on ultrasound Tachycardia Mass of right submandibular region BMI 26.0-26.9,adult BMI 22.0-22.9, adult Coronary artery disease Bilateral hand numbness Chronic low back pain COPD (chronic obstructive pulmonary disease) BMI 23.0-23.9, adult Arthralgia Surgical History Surgical History History of cataract surgery Family History Family History Father , lung cancer Cancer Mother No problems noted. Sibling No problems noted. 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 HENMT: Head is normocephalic and atraumatic. Tacky mucous membranes. No posterior oropharynx erythema. EYES: No scleral icterus. No conjunctival injection or pallor. PERRL. NECK: No meningeal signs. Right neck mass palpated, no fluctuance, no crepitus. RESP: Diminished breath sounds diffusely, tachypnea, speaking in phrases. CARDIO: Regular rate. Regular rhythm. 2+ DP and radial pulses bilaterally. GI: Nondistended. No tenderness to palpation. Soft. : No CVA tenderness to palpation. SKIN: No rashes or lesions noted on exposed skin. NEURO: Oriented x3. Moves all extremities. EXTREM/MSK/BACK: Trace bilateral lower extremity edema. PSYCH: Normal affect. Course Vital Signs Vital signs: Vital Signs Temperature 97.4 F L 02/22/25 22:39 Pulse Rate 124 H 02/22/25 22:39 Respiratory Rate 20 02/22/25 22:39 Blood Pressure 139/78 02/22/25 22:39 Pulse Oximetry 93 02/22/25 22:39 Oxygen Delivery Nasal Cannula 02/22/25 22:39 Oxygen Flow Rate 3 02/22/25 22:39 Temperature 96.2 F L 02/23/25 06:55 Pulse Rate 121 H 02/23/25 06:55 Respiratory Rate 27 H 02/23/25 06:55 Blood Pressure 117/84 02/23/25 06:55 Pulse Oximetry 100 02/23/25 06:55 Oxygen Delivery BiPAP 02/23/25 05:21 Oxygen Flow Rate 15 02/23/25 02:10 MDM - SOB/Dyspnea MDM Narrative Medical decision making narrative: Patient presents with the above complaint. Initial vitals are remarkable for tachycardia, tachypnea, on 3 L of supplemental oxygen via nasal cannula which is the patient's baseline. Physical examination as noted above. Differential diagnosis includes was not limited to: Sepsis, pneumonia, COPD exacerbation, heart failure, ACS, pulmonary embolism, tracheal compression from right neck mass, dysrhythmia, metabolic derangement, thyroid dysfunction, pleural effusion, hemothorax, pneumothorax. Plan discussed: laboratory analysis, EKG, imaging. Patient ordered breathing treatments, normal saline IV fluids at 150 cc/hour, continues cardiac monitoring, continuous pulse oximetry, Solu-Medrol. EKG reveals a rate of 119, rhythm sinus tachycardia, axis is indeterminate, QRS interval of 113 milliseconds, AK interval 172 milliseconds, QTC duration of 469 milliseconds, no ST depressions, borderline ST elevation in leads 3 and AV which are less than 1 mm, baseline artifact present, nonspecific T-wave abnormality, moderate intraventricular conduction delay, possible left atrial enlargement, no old EKG on file for comparison. 23:20 -patient is having nonsustained runs of ventricular tachycardia lasting a few seconds at a time, repeat EKG ordered, magnesium ordered, pads placed on the patient. Patient does note a history of heart failure, has not seen a heart doctor in a long time. 23:40 -cardiology consult to. I do see the patient is on amiodarone 200 mg daily in addition to furosemide metoprolol. Patient has been ordered antibiotics for sepsis. Less than 30ml/kg crystalloid bolus was ordered because it would be detrimental or harmful for the patient despite having sepsis. The patient has the following condition Concern for fluid Overload, Heart failure. In place of the 30ml/kg crystalloid bolus, the patient is to receive 1 L bolus of normal saline. I spoke with Cardiology on-call Dr. Kenney notes to have the patient a loading dose of amiodarone and start the patient on a drip and also give the patient metoprolol and instructed patient on metoprolol b.i.d. which is patient's home medication. We will see the patient in consultation if able to keep here in the IMU. CT of the chest reveals a 4.3 cm ascending thoracic aortic aneurysm, no pulmonary embolism, marked cardiomegaly, trace left pleural effusion, pulmonary arterial hypertension. CT abdomen pelvis reveals 4.6 cm left renal cyst, cholelithiasis without evidence of acute cholecystitis, 2.8 cm right renal cyst, wall thickening versus under distention involving a short segment of descending colon concerning for colitis. Moderate-sized of left hydrocele. L1 superior endplate compression deformity resulting in 50% vertebral body height loss. Lactic acid is rising, more fluids ordered given no pulmonary edema seen on CT. Patient has been started on BiPAP for respiratory distress. Repeat LFTs show a bilirubin of 2.4, AST of 737, ALT of 929. BNP is 6610. TSH is within normal limits. Lipase is within normal limits. CRP is 6.2. Troponin went from 0.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 Mild mass effect on the right lateral aspect of the oropharynx. The right internal jugular vein is dilated approximately and face of the level of the mass. Previously demonstrated possible thrombus is not as distinct in the right internal jugular vein cephalad to the mass is not distinctly visualized. Urinalysis is without any signs of infection. 02:40 - [facility] access line contacted. Patient reports known to [facility]. 03:00 - I spoke with Dr. Lorena Campos from [facility] who recommends ED to ED transfer, I spoke with ER Doctor who recommends direct admit to ICU, will call back with ICU doctor. CRITICAL CARE ADDENDUM: Indication: resp failure requiring NIPPV, vtach, sepsis, hepatopathy, hypotension Time type: intermittent I provided a total of 80 minutes of critical care excluding separately billable procedures. This includes time w/ initial bedside evaluation, reviewing old records, review of testing done while under my care, nurses, weight loss consultant and guiding the patient?s care while in the emergency department. Approximate time distribution: 15 minutes ? Initial evaluation, d/w involved parties, attempting to gather old records. 10 minutes ? Documenting medical record 10 minutes ? Review of results (EKGs, labs, imaging) 10 minutes ? Serial repeat bedside evaluation 10 minutes ? Discussing case with multiple providers Please see main chart for details. Excludes separately billable procedures. Spoke with the furnace caretaker at [facility] Dr. Poon who has accepted the patient for transfer. Patient was started on Levophed for low blood pressure. I did review patient's code status with him and he is okay with intubation and blood pressure support medications but is not okay with CPR and defibrillation. Medical Records Attestation: I reviewed the patient's medical records. Lab Data Attestation: I reviewed the patient's lab results. 02/22/25 23:15 02/23/25 01:42 Labs: Lab Results 02/22/25 02/22/25 02/23/25 Range/Units 23:15 23:37 01:42 WBC 12.9 H (4.5-10.0) K/mm3 RBC 3.87 L (4.6-6.20) M/mm3 Hgb 9.4 L (14.0-18.0) g/dL Hct 30.4 L (42.0-52.0) % MCV 78.6 L (80-100) fl MCH 24.3 L (26-34) pg MCHC 30.9 L (32-36) g/dl RDW 17.1 H (11.5-14.5) % Plt Count 163 (150-375) k/mm3 MPV 10.2 (7.4-10.4) fl Immature Gran % (Auto) 0.4 (0-0.5) % Neut % (Auto) 75.9 H (45.5-73.1) % Lymph % (Auto) 12.6 L (18.3-44.2) % [place] % (Auto) 10.8 H (2.6-8.5) % Eos % (Auto) 0.1 (0-4.4) % Baso % (Auto) 0.2 (0.2-1.2) % Lymph # (Auto) 1.63 (0.9-3.2) K/mm3 [place] # (Auto) 1.4 H (0.1-0.6) K/mm3 Eos # (Auto) 0.0 (0-0.3) K/mm3 Baso # (Auto) 0.0 (0.0-0.1) K/mm3 Abs Immat Gran (auto) 0.05 H (0.00-0.031) K/mm3 Absolute Neuts (auto) 9.8 H (1.3-6.7) K/mm3 Absolute Nucleated RBC 0.020 H (0.0-0.012) K/mm3 Nucleated RBC % 0.2 (0.0-0.2) % PT 21.2 H (11.1-14.7) Seconds INR 1.9 APTT 36.3 (22.3-36.8) Seconds Expiratory Pressure CMH2O Inspiratory Pressure CMH2O Sodium 130 L 129 L (137-145) mmol/L Potassium 4.0 4.4 (3.4-5.0) mmol/L Chloride 92 L 95 L (98-107) mmol/L Carbon Dioxide 31 H 24 (22-30) mmol/L Anion Gap 7 10 (4-12) mmol/L BUN 37 H D 36 H (9-20) mg/dL Creatinine 1.06 1.02 (0.7-1.3) mg/dL Estim Creat Clear Calc 50 52 ml/min Estimated GFR > 60 > 60 (59 - ) Glucose 200 H 188 H (65-110) mg/dL Lactic Acid 4.9 H* (0.7-2.0) mmol/L Calcium 8.7 7.7 L (8.4-10.2) mg/dL Phosphorus 3.0 (2.5-4.5) mg/dL Magnesium 2.3 (1.6-2.3) mg/dL Total Bilirubin 2.7 H 2.4 H (0.2-1.3) mg/dL Direct Bilirubin 0.6 H (0-0.3) mg/dL Indirect Bilirubin 0.5 (0-1.1) mg/dL AST 1029 H 737 H (17-59) U/L ALT 1168 H 928 H (6-50) U/L Alkaline Phosphatase 161 H 120 (38-126) U/L Troponin I 0.014 (0.000-0.034) ng/mL C-Reactive Protein 6.2 H (<1.0) mg/dL NT-Pro-B Natriuret Pep 6610 H (19.9-100) pg/mL Total Protein 6.7 5.4 L (6.3-8.2) g/dL Albumin 3.3 L 2.5 L (3.5-5.1) g/dL Lipase 129 (23-300) U/L TSH (Reflex) 4.390 (0.465-4.68) uIU/mL Free T4 1.47 (0.78-2.19) ng/dL Total T3 1.80 H (0.82-1.58) NG/ML Urine Color Dark yellow (Yellow) Urine Appearance Cloudy H (Clear) Urine pH 5.5 (5.0-9.0) Ur Specific [place] 1.019 (1.001-1.035) Urine Protein Trace (Negative) mg/dL Urine Glucose (UA) Negative (Negative) mg/dL Urine Ketones Trace H (Negative) mg/dL Ur Blood (Man) Negative (Negative) Urine Nitrate Negative (Negative) Urine Bilirubin 1+ H (Negative) Urine Urobilinogen 2.0 H (<2.0) mg/dL Add Ur Microanalysis Reviewed Leukocyte Esterase Rfl Negative (Negative) JEANNIE/UL Urine RBC 0-2 (0-2) /hpf Urine WBC 0-5 (0-3) /hpf Ur Squamous Epith Cells None seen (Few) /hpf Urine Bacteria None seen /hpf Urine Casts 0-2 Hyaline Casts Present (None) /lpf Salicylates < 1.0 L (2-20) mg/dL Acetaminophen < 10 L (10-30) ug/mL Hepatitis A IgM Ab Negative (Negative) Hep Bs Antigen Negative (Negative) Hep B Core IgM Ab Negative (Negative) Hepatitis C Ab Screen Negative (Negative) Influenza A (RT-PCR) Negative (Negative) Influenza B (RT-PCR) Negative (Negative) RSV (RT-PCR) Negative (Negative) SARS-CoV-2 RNA (RT-PCR) Negative (Negative) 02/23/25 02/23/25 Range/Units 01:57 04:26 WBC (4.5-10.0) K/mm3 RBC (4.6-6.20) M/mm3 Hgb (14.0-18.0) g/dL Hct (42.0-52.0) % MCV (80-100) fl MCH (26-34) pg MCHC (32-36) g/dl RDW (11.5-14.5) % Plt Count (150-375) k/mm3 MPV (7.4-10.4) fl Immature Gran % (Auto) (0-0.5) % Neut % (Auto) (45.5-73.1) % Lymph % (Auto) (18.3-44.2) % [place] % (Auto) (2.6-8.5) % Eos % (Auto) (0-4.4) % Baso % (Auto) (0.2-1.2) % Lymph # (Auto) (0.9-3.2) K/mm3 [place] # (Auto) (0.1-0.6) K/mm3 Eos # (Auto) (0-0.3) K/mm3 Baso # (Auto) (0.0-0.1) K/mm3 Abs Immat Gran (auto) (0.00-0.031) K/mm3 Absolute Neuts (auto) (1.3-6.7) K/mm3 Absolute Nucleated RBC (0.0-0.012) K/mm3 Nucleated RBC % (0.0-0.2) % PT (11.1-14.7) Seconds INR APTT (22.3-36.8) Seconds Expiratory Pressure 6 CMH2O Inspiratory Pressure 12 CMH2O Sodium (137-145) mmol/L Potassium (3.4-5.0) mmol/L Chloride (98-107) mmol/L Carbon Dioxide (22-30) mmol/L Anion Gap (4-12) mmol/L BUN (9-20) mg/dL Creatinine (0.7-1.3) mg/dL Estim Creat Clear Calc ml/min Estimated GFR (59 - ) Glucose (65-110) mg/dL Lactic Acid 5.6 H* (0.7-2.0) mmol/L Calcium (8.4-10.2) mg/dL Phosphorus (2.5-4.5) mg/dL Magnesium (1.6-2.3) mg/dL Total Bilirubin (0.2-1.3) mg/dL Direct Bilirubin (0-0.3) mg/dL Indirect Bilirubin (0-1.1) mg/dL AST (17-59) U/L ALT (6-50) U/L Alkaline Phosphatase (38-126) U/L Troponin I 0.012 (0.000-0.034) ng/mL C-Reactive Protein (<1.0) mg/dL NT-Pro-B Natriuret Pep (19.9-100) pg/mL Total Protein (6.3-8.2) g/dL Albumin (3.5-5.1) g/dL Lipase (23-300) U/L TSH (Reflex) (0.465-4.68) uIU/mL Free T4 (0.78-2.19) ng/dL Total T3 (0.82-1.58) NG/ML Urine Color (Yellow) Urine Appearance (Clear) Urine pH (5.0-9.0) Ur Specific [place] (1.001-1.035) Urine Protein (Negative) mg/dL Urine Glucose (UA) (Negative) mg/dL Urine Ketones (Negative) mg/dL Ur Blood (Man) (Negative) Urine Nitrate (Negative) Urine Bilirubin (Negative) Urine Urobilinogen (<2.0) mg/dL Add Ur Microanalysis Leukocyte Esterase Rfl (Negative) JEANNIE/UL Urine RBC (0-2) /hpf Urine WBC (0-3) /hpf Ur Squamous Epith Cells (Few) /hpf Urine Bacteria /hpf Urine Casts Hyaline Casts (None) /lpf Salicylates (2-20) mg/dL Acetaminophen (10-30) ug/mL Hepatitis A IgM Ab (Negative) Hep Bs Antigen (Negative) Hep B Core IgM Ab (Negative) Hepatitis C Ab Screen (Negative) Influenza A (RT-PCR) (Negative) Influenza B (RT-PCR) (Negative) RSV (RT-PCR) (Negative) SARS-CoV-2 RNA (RT-PCR) (Negative) ABG Data ABG results: 02/22/25 02/23/25 23:15 04:26 Puncture Site Right brachial Right brachial ABG pH 7.280 L* 7.264 L* ABG pCO2 53.6 H 41.4 ABG pO2 102.3 H 148.0 H ABG PO2/FiO2 Ratio 3.20 2.47 ABG HCO3 24.6 18.3 L ABG O2 Saturation 96.9 98.6 ABG O2 Content 13.8 L 12.0 L ABG Base Excess -2.4 -8.1 A-a Gradient 3.2 234.3 Oxyhemoglobin 95.8 97.7 Total Hemoglobin 10.1 L 8.5 L O2 Delivery Device Nasal cannula Non-invasive vent O2 Liters/Min 3.0 Not Reportable Vent Rate 12 FiO2 32 60 Critical Care Time Critical Care Time Critical Care Time: Yes Total Critical Care Time: 80 Discharge Plan Discharge Clinical Impression: Respiratory failure, Transaminitis, Elevated bilirubin, Sepsis, V-tach, Mass in neck, Acute hypotension Patient Disposition: Acute Care Hospital Condition: Serious Patient Language: Croatian Prescriptions: No Action sertraline 50 mg tablet 50 mg PO QHS Qty: 30 1RF Rx Instructions: Take 1/2 tablet for the first week at bedtime, then increase to 1 tablet daily at bedtime. Neishai Aerosphere 160-9-4.8 mcg/actuation HFA aerosol inhaler 2 inh inhalation BID docusate sodium [Colace] 100 mg capsule 100 mg PO BID budesonide [Pulmicort] 0.5 mg/2 mL suspension for nebulization 0.5 mg inhalation BID PRN ondansetron HCl 4 mg tablet 4 mg PO Q8H PRN thiamine HCl (vitamin B1) 100 mg tablet 100 mg PO DAILY polyethylene glycol 3350 [Miralax] 17 gram/dose powder 17 g PO DAILY metoprolol tartrate 25 mg tablet 25 mg PO BID furosemide [Lasix] 20 mg tablet 20 mg PO QAM Qty: 30 5RF aspirin 81 mg tablet,chewable 81 mg PO DAILY Qty: 30 2RF ipratropium-albuterol 0.5 mg-3 mg(2.5 mg base)/3 mL solution for nebulization 3 ml inhalation Q6H PRN (Reason: wheezing) Qty: 90 2RF albuterol sulfate 90 mcg/actuation HFA aerosol inhaler 1 inh inhalation Q4H PRN (Reason: shortness of breath or wheezing) Qty: 8.5 2RF mupirocin 2 % ointment 1 applic topical BID Qty: 15 0RF pantoprazole 40 mg tablet,delayed release (DR/EC) See Rx Instructions .ROUTE .COMPLEX Qty: 90 0RF Dose Instruction: TAKE 1 TABLET BY MOUTH EVERY MORNING Rx Instructions: TAKE 1 TABLET BY MOUTH EVERY MORNING folic acid 1 mg tablet 1 mg PO DAILY Qty: 30 4RF tizanidine 2 mg tablet See Rx Instructions .ROUTE .COMPLEX Qty: 30 2RF Dose Instruction: TAKE 1 TABLET BY MOUTH EVERY NIGHT AT BEDTIME Rx Instructions: TAKE 1 TABLET BY MOUTH EVERY NIGHT AT BEDTIME amiodarone 200 mg tablet 200 mg PO DAILY Qty: 90 0RF atorvastatin 80 mg tablet 80 mg PO DAILY Qty: 90 0RF buspirone 10 mg tablet 10 mg PO BID Qty: 60 1RF Rx Instructions: Start with one tablet daily for 1-2 weeks and if tolerating, ok to increase to 2 tablets daily. tramadol 50 mg tablet 50 mg PO Q6H PRN (Reason: pain) Qty: 30 0RF Follow-up/Referrals: Durga Syed MD [Primary Care Provider, Family Practice] Time of Disposition: 04:43
--- NOTE | 2025-02-22 23:06 | ECG_ITS ---
Test Date: 2025-02-22 23:10:24 Measurements Intervals [place] Rate: 119 P: 48 VA: 172 QRS: -7 QRSD: 113 T: 106 QT: 332 QTc: 469 Interpretive Statements SINUS TACHYCARDIA POSSIBLE LEFT ATRIAL ENLARGEMENT INTRAVENTRICULAR CONDUCTION DELAY BORDERLINE R WAVE PROGRESSION, ANTERIOR LEADS INFERIOR INFARCT, AGE INDETERMINATE NONSPECIFIC ST-T WAVE ABNORMALITY- HIGH LATERAL LEADS BASELINE ARTIFACT- I, III, AVR, AVL, AVF, V1, V6 ABNORMAL ECG No previous ECG available for comparison Electronically Signed On 02-23-2025 06:24:28 CDT by Mateus Correia D.O.
[2025-02-22 23:10] VITALS: O2SAT 95
[2025-02-22 23:15] VITALS: PULSE 113; RESP 26
[2025-02-22 23:27] LABS: Hematocrit 30.4 % (42.0-52.0); Hemoglobin 9.4 g/dL (14.0-18.0); Immature Granulocyte Percent A 0.4 % (0-0.5); Lymphocytes Absolute Auto 1.63 K/mm3 (0.9-3.2); Mean Corpuscular HGB Conc 30.9 g/dl (32-36); Mean Corpuscular Hemoglobin 24.3 pg (26-34); Mean Corpuscular Volume 78.6 fl (80-100); Nucleated Red Blood Cells Absolute Auto 0.020 K/mm3 (0.0-0.012); Nucleated Red Blood Cells Perc 0.2 % (0.0-0.2); Platelet Count Result 163 k/mm3 (150-375); Red Blood Count 3.87 M/mm3 (4.6-6.20); White Blood Count 12.9 K/mm3 (4.5-10.0)
[2025-02-22] MEDS: MAGNESIUM SULF 2 GM/WATER 50ML 2 GM/50 ML BAG IVPB (23:27)
[2025-02-22] MEDS: SODIUM CHLORIDE 0.9% IV 1,000 ML 150 ML IV CONT (23:27)
[2025-02-22 23:31] LABS: HCO3 ABG 24.6 mEq/l (22.0-26.0); PCO2 ABG 53.6 mmHg (35.0-45.0); PO2 ABG 102.3 mmHg (80.0-100.0)
[2025-02-22 23:32] LABS: Oxygen Saturation ABG 96.9 % (95.0-100.0)
[2025-02-22 23:33] LABS: Alveolar/Arterial O2 Gradient 3.2 mmHg; Oxygen Content ABG 13.8 %vol (16.0-22.0)
[2025-02-22 23:34] LABS: Fractional Inspired Oxygen 32 %; Liters per Minute 3.0 LPM; Modified Allen's Test Pass; PO2 FiO2 Ratio Arterial Blood 3.20 %; Site Drawn RIGHT BRACHIAL
[2025-02-22 23:40] LABS: INR 1.9; Prothrombin Time 21.2 Seconds (11.1-14.7)
[2025-02-22 23:41] LABS: Partial Thromboplastin Time 36.3 Seconds (22.3-36.8)
[2025-02-22 23:42] LABS: Add Urine Microscopic? YES; Appearance Urine Cloudy (Clear); Glucose Urine UA Negative (Negative); Leukocyte Esterase Ur Negative LEU/UL (Negative); Need Manual Microscopic Reviewed; Nitrate Urine Negative (Negative); Non Pathogenic Casts 0-2; Specific Grav Ur 1.019 (1.001-1.035)
[2025-02-22] MEDS: IPRATROPIUM BR 0.02% INH SOLN 0.5 MG/2.5 ML VIAL INHALATION (23:51)
[2025-02-22 23:54] VITALS: PULSE 123
[2025-02-22 23:55] VITALS: O2SAT 98
[2025-02-22] MEDS: cefTRIAXone 1 GM in SODIUM CHLORIDE 0.9% IV 50 ML 100 ML IVPB (23:59)
[2025-02-23] VITALS (99 sets, daily range): BP systolic 54–119; BP diastolic 39–96; PULSE 101–148; RESP 21–41; TEMP 32.3–37.2; O2SAT 80–100; BMI 24.2
--- NOTE | 2025-02-23 | ECHO_ITS ---
Patient Info Name: Lennox Bowden Age: 69 years : 1955 Gender: Male Ht: 65 in Wt: 147 lbs BSA: 1.76 m2 HR: 122 bpm BP: 105 / 77 mmHg Heart Rhythm: Atrial Fibrillation Technical Quality: Good Exam Date: 02/23/2025 2:57 PM Patient Status: I Admit Date: 02/23/2025 Exam Type: CA echo doppler w bubble study Complete two-dimensional, color flow and Doppler transthoracic echocardiogram is performed with agitated saline. Staff Referring Physician: Sean Zuluaga Director Risk: Juanjo Boo III Attending Provider: Joseph Toledo MD Contrast/Agitated Saline Contrast/Ag. Saline: Agitated Saline Amount: 12.00 ml Administered By: Juanjo Boo III Existing IV Access: Yes IV Access Condition: patent with no signs of infiltration Summary 1. Left ventricular chamber dimension is moderately enlarged. 2. Left ventricular systolic function is severely reduced, estimated at 20-25. 3. There is no increased left ventricular wall thickness. 4. The left ventricular diastolic function is indeterminate. 5. Left atrial chamber dimension is moderately enlarged. 6. Right atrial chamber dimension is mildly enlarged. 7. Intact interatrial septum visualized by color flow and agitated saline imaging. 8. There is moderate to severe aortic valve stenosis with a peak velocity of 305 cm/s, mean gradient of 11 mmHg, and aortic valve area of 1.2 cm2. 9. There is mild to moderate aortic valve regurgitation. 10. There is severe aortic valve calcification. 11. There is severe mitral valve regurgitation. 12. There is severe tricuspid valve regurgitation. 13. Mild pulmonary hypertension, estimated pulmonary arterial systolic pressure is 44 mmHg. 14. There is mild pulmonic regurgitation. Left Ventricle Left ventricular chamber dimension is moderately enlarged. Left ventricular systolic function is severely reduced, estimated at 20-25. There is no increased left ventricular wall thickness. The left ventricular diastolic function is indeterminate. Right Ventricle Right ventricular chamber dimension is normal. Right ventricular systolic function is normal. Left Atria Left atrial chamber dimension is moderately enlarged. Right Atria Right atrial chamber dimension is mildly enlarged. Atrial Septum Intact interatrial septum visualized by color flow and agitated saline imaging. Aortic Valve The aortic valve is probable trileaflet. There is moderate to severe aortic valve stenosis with a peak velocity of 305 cm/s, mean gradient of 11 mmHg, and aortic valve area of 1.2 cm2. There is mild to moderate aortic valve regurgitation. There is severe aortic valve calcification. Pulmonic Valve The pulmonic valve is normal. There is no pulmonic valve stenosis. There is mild pulmonic regurgitation. Mitral Valve The mitral valve has normal leaflets. There is no mitral valve stenosis. There is severe mitral valve regurgitation. Tricuspid Valve The tricuspid valve leaflets are normal. There is no significant tricuspid valve stenosis. There is severe tricuspid valve regurgitation. Mild pulmonary hypertension, estimated pulmonary arterial systolic pressure is 44 mmHg. Pericardium/Pleural The pericardium appears normal. There is no pericardial effusion. Inferior Vena Cava Dilated inferior vena cava with <50% collapse upon inspiration consistent with elevated right atrial pressure, 20 mmHg. Aorta The aortic root size at the sinus of Valsalva is normal. Left Ventricular Outflow Tract Name Value Normal LVOT 2D LVOT Diameter 2.3 cm LVOT Doppler LVOT Peak Velocity 75 cm/s LVOT Peak Gradient 2 mmHg LVOT Mean Gradient 1 mmHg LVOT VTI 11 cm LVOT VTI/AV VTI Ratio 0.3 LVOT Stroke Volume 46 ml LVOT CO 3.8 l/min LVOT CI 2.2 l/min/m2 Pulmonic Valve Name Value Normal PV Doppler PV Peak Velocity 79 cm/s PV Peak Gradient 2 mmHg PV Mean Gradient 1 mmHg PV Regurgitation Doppler CA Peak End Diastolic Velocity 165 cm/s Mitral Valve Name Value Normal MV Doppler MV Peak Gradient 10 mmHg MV Mean Gradient 4 mmHg MV Area (Cont Eq VTI) 2.1 cm2 MV Regurgitation Doppler MR Peak Gradient 99 mmHg MR ERO (PISA) 0.17 cm2 MR Volume (PISA) 22 ml MV Diastolic Function MV E Peak Velocity 154 cm/s MV A Peak Velocity 3 cm/s MV E/A 51.3 MV Decel Time (PW) 160 ms MV Annular TDI MV E/e' (Septal) 17.6 MV E/e' (Lateral) 14.2 MV E/e' (Average) 15.9 Tricuspid Valve Name Value Normal TV Regurgitation Doppler TR Peak Velocity 244 cm/s TR Peak Gradient 24 mmHg Estimated PAP/RSVP RA Pressure 20 mmHg <=5 PA Systolic Pressure 44 mmHg <36 RV Systolic Pressure 44 mmHg <36 TV Annular TDI TV Lateral Desiree s' Velocity 13.8 cm/s >=9.5 Aortic Valve Name Value Normal AV Doppler AV Peak Velocity 305 cm/s AV Peak Gradient 37 mmHg AV Mean Gradient 11 mmHg AV VTI 39 cm AV Area (Cont Eq VTI) 1.2 cm2 >=3.0 AV Area (Cont Eq Peyman) 1.0 cm2 AV DI (Peyman) 0.25 AV Regurgitation 2D LVOT Area 4.0 cm2 Ventricles Name Value Normal LV Dimensions 2D/MM IVS Diastolic Thickness (2D) 0.9 cm 0.6-1.0 LVID Diastole (2D) 5.4 cm 4.2-5.8 LVIW Diastolic Thickness (2D) 0.9 cm 0.6-1.0 LVID Systole (2D) 4.8 cm 2.5-4.0 LVOT Diameter 2.3 cm LV Mass (2D Cubed) 190.31 g 88.00-224.00 LV Mass Index (2D Cubed) 108 g/m2 49-115 Relative Wall Thickness (2D) 0.34 <=0.42 LV Fractional Shortening/Ejection Fraction 2D/MM LV Fractional Shortening (2D) 11 % 25-43 LV EF (2D Teichholz) 23 % LV Diastolic Volume (4C MOD) 198 ml LV EF (4C MOD) 33 % LV Diastolic Volume (2C MOD) 210 ml LV EF (2C MOD) 34 % LV Diastolic Volume (BP MOD) 205 ml 62-150 LV Diastolic Volume Index (BP MOD) 117 ml/m2 34-74 LV Systolic Volume (BP MOD) 140 ml 21-61 LV Systolic Volume Index (BP MOD) 80 ml/m2 11-31 LV EF (BP MOD) 32 % 52-72 LV Diastolic Length (4C) 8.6 cm LV Systolic Length (4C) 8.2 cm LV Stroke Volume (4C MOD) 66 ml Atria Name Value Normal LA Dimensions LA Volume (4C A-L) 133 ml LA Volume (BP A-L) 129 ml RA Dimensions RA Systolic Major [place] Length (4C) 7.3 cm 2.1-2.7 RA Area (4C) 36.3 cm2 <=18.0 Report Signatures
[2025-02-23 00:02] LABS: Albumin Level 3.3 g/dL (3.5-5.1); Alkaline Phosphatase 161 U/L (38-126); Anion Gap 7 mmol/L (4-12); Bilirubin,Total 2.7 mg/dL (0.2-1.3); Blood Urea Nitrogen 37 mg/dL (9-20); CRP 6.2 mg/dL (<1.0); Calcium 8.7 mg/dL (8.4-10.2); Carbon Dioxide 31 mmol/L (22-30); Chloride 92 mmol/L (98-107); Estimated CRCL calculation 50 ml/min; Estimated Glomerular Filt Rate > 60; Glucose 200 mg/dL (65-110); Lipase 129 U/L (23-300); Magnesium 2.3 mg/dL (1.6-2.3); Potassium 4.0 mmol/L (3.4-5.0); Sodium 130 mmol/L (137-145); Total Protein 6.7 g/dL (6.3-8.2)
[2025-02-23 00:10] LABS: Thyroid Stimulating Hormone Reflex 4.390 uIU/mL (0.465-4.68)
[2025-02-23 00:19] LABS: Influenza A QL RT-PCR Negative (Negative); Influenza B QL RT-PCR Negative (Negative); RSV RNA, RT-PCR Negative (Negative); SARS-CoV-2 RNA PCR Negative (Negative)
[2025-02-23 00:21] LABS: Alanine Aminotransferase 1168 U/L (6-50); Aspartate Amino Transferase 1029 U/L (17-59)
[2025-02-23] MEDS: DOXYCYCLINE IV 100 MG in SODIUM CHLORIDE 0.9% IV 100 ML IVPB ×2 (00:23→11:20)
[2025-02-23 00:30] LABS: NT Pro B Type Natriuretic Pept 6610 pg/mL (19.9-100); Troponin I 0.014 ng/mL (0.000-0.034)
[2025-02-23 00:39] LABS: Free T4 Free Thyroxine Reflex 1.47 ng/dL (0.78-2.19)
[2025-02-23 01:07] LABS: Acetaminophen < 10 ug/mL (10-30); Salicylate < 1.0 mg/dL (2-20)
[2025-02-23 01:25] LABS: Total Triiodothyronine (T3) 1.80 NG/ML (0.82-1.58)
[2025-02-23 01:38] LABS: Hepatitis B Surface Antigen Negative (Negative)
[2025-02-23 01:44] LABS: HAV RESULT Negative (Negative); Hepatitis B Core IgM Result Negative (Negative)
[2025-02-23] MEDS: FUROSEMIDE INJ 40 MG/4 ML VIAL IV PUSH (01:46)
[2025-02-23 02:04] LABS: Albumin Level 2.5 g/dL (3.5-5.1); Alkaline Phosphatase 120 U/L (38-126); Anion Gap 10 mmol/L (4-12); Aspartate Amino Transferase 737 U/L (17-59); Bilirubin,Total 2.4 mg/dL (0.2-1.3); Blood Urea Nitrogen 36 mg/dL (9-20); Calcium 7.7 mg/dL (8.4-10.2); Carbon Dioxide 24 mmol/L (22-30); Chloride 95 mmol/L (98-107); Estimated CRCL calculation 52 ml/min; Estimated Glomerular Filt Rate > 60; Glucose 188 mg/dL (65-110); Potassium 4.4 mmol/L (3.4-5.0); Sodium 129 mmol/L (137-145); Total Protein 5.4 g/dL (6.3-8.2)
[2025-02-23 02:15] LABS: Alanine Aminotransferase 928 U/L (6-50)
[2025-02-23 02:25] LABS: Troponin I 0.012 ng/mL (0.000-0.034)
[2025-02-23] MEDS: SODIUM CHLORIDE 0.9% IV 1,000 ML 999 ML IV CONT ×2 (02:52)
[2025-02-23] MEDS: SODIUM CHLORIDE 0.9% IV 1,000 ML 999 ML (03:59)
--- NOTE | 2025-02-23 04:00 | PC.NURSE ---
Pt BP was 54/39. RN rechecked BP and it was 81/52. MD dupont notified. He verbally orders to pressure bag a 1000ml NS bag and to hold amiodarone drip at this time. Drip is on hold and Iv fluids are being pressure bagged at this time.
--- NOTE | 2025-02-23 04:20 | PC.NURSE ---
Pt BP is 92/79 after pressured bag 1L. MD notified and verbally states to pressure bag another liter of NS.
[2025-02-23 04:36] LABS: Alveolar/Arterial O2 Gradient 234.3 mmHg; Fractional Inspired Oxygen 60 %; HCO3 ABG 18.3 mEq/l (22.0-26.0); Oxygen Content ABG 12.0 %vol (16.0-22.0); Oxygen Saturation ABG 98.6 % (95.0-100.0); PCO2 ABG 41.4 mmHg (35.0-45.0); PO2 ABG 148.0 mmHg (80.0-100.0); PO2 FiO2 Ratio Arterial Blood 2.47 %
[2025-02-23 04:40] LABS: Modified Allen's Test Pass; Non-Invasive Expiratory Pressure 6 CMH2O; Non-Invasive Inspiratory Pressure 12 CMH2O; Non-Invasive Vent Rate 12 /MIN; Site Drawn RIGHT BRACHIAL
[2025-02-23] MEDS: NOREPINEPHRINE 8 MG/D5W 250 ML 8 MG/250 ML BAG 9.38 MG IV CONT (04:50)
--- NOTE | 2025-02-23 07:21 | PC.NURSE ---
BSR completed with Genevieve, patient opened eyes and acknowledged RN presence.
--- NOTE | 2025-02-23 08:06 | PC.NURSE ---
Patient gave verbal consent to this RN and Jessica RN to have invasive line placed; form signed and placed on chart. Dc MOISE with PICC team came to place line and noted that the patient will be transferred to [facility] where cautionary discretion is advised in placement for this patient as at [facility] it is noted that per policy outside lines are removed within 24 hours and the patient has limited access due to medical condition.
--- NOTE | 2025-02-23 08:33 | PC.NURSE ---
Placed Opal device on stand-by as temperature was up to 97.4 core
[2025-02-23 09:15] LABS: Troponin I 0.022 ng/mL (0.000-0.034)
--- NOTE | 2025-02-23 09:16 | ECG_ITS ---
Test Date: 2025-02-23 09:22:15 Measurements Intervals [place] Rate: 126 P: 0 TN: 0 QRS: -20 QRSD: 111 T: 64 QT: 328 QTc: 476 Interpretive Statements ATRIAL FIBRILLATION WITH RAPID VENTRICULAR RESPONSE WITH VENTRICULAR TRIPLET AND VENTRICULAR PREMATURE COMPLEXES INTRAVENTRICULAR CONDUCTION DELAY BORDERLINE R WAVE PROGRESSION, ANTERIOR LEADS INFERIOR INFARCT, AGE INDETERMINATE BORDERLINE ST-T WAVE ABNORMALITY- HIGH LATERAL LEADS BASELINE WANDER- I, AVR, V4-V6 ABNORMAL ECG Compared to ECG 02/22/2025 23:10:24 SINUS TACHYCARDIA NO LONGER PRESENT Electronically Signed On 02-23-2025 14:27:06 CDT by Mateus Correia D.O.
--- NOTE | 2025-02-23 11:56 | VASCRN ---
Order received for: PICC After review of the chart and the patient assessment, patient is not a candidate for the following reason(s): this patient is being transferred to [facility] where their policy is to remove and replace central lines within 24 hours. At the time of my assessment the patient was on a low dose of levophed. I discussed this issue with the ED physician and it was decided to hold on the placement of a PICC line at this time. However if the patient were to start declining or needing significantly more pressure support that it may be necessary for me to place the PICC line prior to the patients departure. I discussed this with the MD, bedside nurse and charge nurse. Provider notified: Dr. Zuluaga
[2025-02-23] MEDS: LACTATED RINGERS 1,000 ML 125 ML IV CONT (12:27)
[2025-02-23 12:46] LABS: Alveolar/Arterial O2 Gradient 203.0 mmHg; Carboxyhemoglobin 0.9 % THb (0-2.0); Fractional Inspired Oxygen 60 %; HCO3 ABG 16.3 mEq/l (22.0-26.0); Methemoglobin ABG 0.0 %THb (0-1.5); Modified Allen's Test Pass; Oxygen Content ABG 13.5 %vol (16.0-22.0); Oxygen Saturation ABG 99.2 % (95.0-100.0); PCO2 ABG 32.0 mmHg (35.0-45.0); PO2 ABG 189.6 mmHg (80.0-100.0); PO2 FiO2 Ratio Arterial Blood 3.16 %; Reduced Hemoglobin 0.3 %THb (0-5.0); Site Drawn RIGHT RADIAL
[2025-02-23 12:47] LABS: Non-Invasive Expiratory Pressure 6 CMH2O; Non-Invasive Inspiratory Pressure 12 CMH2O; Non-Invasive Vent Rate 12 /MIN
--- NOTE | 2025-02-23 13:10 | ED.PROGRESS ---
Subjective Date/time seen: 02/23/25 13:10 Interval history: 69-year-old male present emergency department for evaluation for increased difficulty breathing. Patient states has been worsening over the last few days and did have a fall yesterday. Patient does have a known history of COPD. Patient does wear 2 L of oxygen at baseline. Patient does have history of decreased ejection fraction. Patient does take Lasix. Patient does have a known mass on the right lateral neck that could be squamous cell carcinoma. Overnight patient began developing low blood pressure and he was treated with a L of IV fluids, the 30 male per case was withheld due to concern for fluid overload. Patient blood pressures did respond to this initial fluid bolus but then began to lower can and patient was started on peripheral Levophed. During course of the night patient began developing some respiratory distress and was placed on BiPAP and this did help his respiration. Patient's initial pH was 7.28 at 11 on the th and on recheck at noon on the that was improved to 7.324. While on BiPAP patient's pCO2 went from 53.6 to 32. on re-evaluation patient does continue to be alert and appropriate. Patient was started on doxycycline Rocephin overnight. Patient does have elevated liver enzymes. Does have cholelithiasis. Right upper quadrant ultrasound was ordered to evaluate for acute cholecystitis. Patient was also started on additional IV Zosyn. But is still pending at U. I discussed the case with the medical historian and with the hospitalist and patient will be accepted to our ICU in the interim. Vascular access is pacing a PICC line to provide the pressors. Repeat lactic acid does show a worsening. Initial lactic acid was 4.9 but recheck showed increased to 7.9. Review of Systems Review of Systems ROS unobtainable: Yes unobtainable due to medical condition Exam Narrative APPEARANCE: Ill-appearing but comfortable on BiPAP HEAD: normocephalic, atraumatic. EYES: PERRLA/EOMI, conjunctivae clear. RESPIRATORY: Diminished lung sounds bilaterally CARDIOVASCULAR: Regular rate and rhythm without murmurs rubs or gallops. ABDOMINAL: Soft, nontender, nondistended, normal bowel sounds MUSCULOSKELETAL: Moves all extremities. Strength/ROM intact, No edema, No calf tenderness. NEURO: Alert. Cranial nerves II through XII intact. Good gait. Good coordination SKIN: Warm, dry. Normal Color Objective Data Vital Signs Vital Signs: Vital Signs - 24 hr 02/22/25 22:39 02/22/25 23:10 02/22/25 23:15 Temperature 97.4 F L Pulse Rate 124 H 113 H Respiratory Rate 20 26 H Blood Pressure 139/78 Pulse Oximetry 93 95 Oxygen Delivery Nasal Cannula Nasal Cannula Oxygen Flow Rate 3 3 02/22/25 23:54 02/22/25 23:55 02/23/25 00:23 Temperature Pulse Rate 123 H 148 H Respiratory Rate Blood Pressure 103/85 Pulse Oximetry 98 Oxygen Delivery Nasal Cannula Oxygen Flow Rate 3 02/23/25 00:35 02/23/25 00:44 02/23/25 00:47 Temperature Pulse Rate 116 H 125 H 106 H Respiratory Rate Blood Pressure 103/82 103/82 Pulse Oximetry Oxygen Delivery Oxygen Flow Rate 02/23/25 02:07 02/23/25 02:10 02/23/25 02:18 Temperature Pulse Rate 120 H 118 H Respiratory Rate 26 H 30 H Blood Pressure 113/86 Pulse Oximetry 100 88 L 100 Oxygen Delivery BiPAP Non-Rebreather Mask Oxygen Flow Rate 15 02/23/25 03:21 02/23/25 03:58 02/23/25 04:22 Temperature Pulse Rate 101 H 114 H 106 H Respiratory Rate 26 H 24 H Blood Pressure 105/71 54/39 L 92/79 L Pulse Oximetry 98 100 Oxygen Delivery Oxygen Flow Rate 02/23/25 04:35 02/23/25 04:50 02/23/25 04:56 Temperature 95.5 F L 95.1 F L Pulse Rate 117 H 108 H Respiratory Rate 30 H Blood Pressure 88/70 L 91/74 L Pulse Oximetry 100 Oxygen Delivery Oxygen Flow Rate 02/23/25 05:06 02/23/25 05:10 02/23/25 05:15 Temperature 95.1 F L Pulse Rate 113 H Respiratory Rate 30 H Blood Pressure 98/74 L 101/71 Pulse Oximetry Oxygen Delivery Oxygen Flow Rate 02/23/25 05:15 02/23/25 05:20 02/23/25 05:21 Temperature Pulse Rate 112 H 120 H 103 H Respiratory Rate 31 H 26 H 23 H Blood Pressure 112/79 116/80 Pulse Oximetry 100 Oxygen Delivery BiPAP Oxygen Flow Rate 02/23/25 05:25 02/23/25 05:30 02/23/25 05:35 Temperature Pulse Rate 111 H 117 H 125 H Respiratory Rate 29 H 27 H 29 H Blood Pressure 112/80 115/93 H 107/93 H Pulse Oximetry Oxygen Delivery Oxygen Flow Rate 02/23/25 05:40 02/23/25 05:45 02/23/25 05:50 Temperature Pulse Rate 116 H 122 H 124 H Respiratory Rate 31 H 36 H 28 H Blood Pressure 102/85 113/90 106/79 Pulse Oximetry 93 Oxygen Delivery Oxygen Flow Rate 02/23/25 05:55 02/23/25 05:56 02/23/25 06:00 Temperature 90.1 F L 93.6 F L Pulse Rate 117 H 120 H 108 H Respiratory Rate 31 H 32 H 35 H Blood Pressure 108/96 H 111/86 Pulse Oximetry 84 L Oxygen Delivery Oxygen Flow Rate 02/23/25 06:01 02/23/25 06:05 02/23/25 06:06 Temperature 93.8 F L 94.4 F L 94.5 F L Pulse Rate 120 H 126 H 119 H Respiratory Rate 31 H 28 H 31 H Blood Pressure 107/81 Pulse Oximetry 100 Oxygen Delivery Oxygen Flow Rate 02/23/25 06:10 02/23/25 06:15 02/23/25 06:16 Temperature 94.9 F L 95.2 F L 95.3 F L Pulse Rate 121 H 125 H 125 H Respiratory Rate 31 H 29 H 32 H Blood Pressure 99/84 L 116/84 Pulse Oximetry Oxygen Delivery Oxygen Flow Rate 02/23/25 06:20 02/23/25 06:25 02/23/25 06:30 Temperature 95.4 F L 95.6 F L 95.7 F L Pulse Rate 123 H 124 H 124 H Respiratory Rate 35 H 33 H 36 H Blood Pressure 107/77 102/91 H 107/93 H Pulse Oximetry Oxygen Delivery Oxygen Flow Rate 02/23/25 06:31 02/23/25 06:35 02/23/25 06:41 Temperature 95.7 F L 95.8 F L 95.9 F L Pulse Rate 112 H 118 H 113 H Respiratory Rate 30 H 25 H 26 H Blood Pressure 106/85 119/86 Pulse Oximetry Oxygen Delivery Oxygen Flow Rate 02/23/25 06:45 02/23/25 06:46 02/23/25 06:48 Temperature 96.0 F L 96.0 F L 96.0 F L Pulse Rate 123 H 117 H Respiratory Rate 24 H 26 H Blood Pressure 118/87 Pulse Oximetry Oxygen Delivery Oxygen Flow Rate 02/23/25 06:50 02/23/25 06:55 02/23/25 07:00 Temperature 96.1 F L 96.2 F L 96.2 F L Pulse Rate 122 H 121 H 124 H Respiratory Rate 26 H 27 H 26 H Blood Pressure 109/86 117/84 119/88 Pulse Oximetry 100 100 Oxygen Delivery Oxygen Flow Rate 02/23/25 07:05 02/23/25 07:15 02/23/25 07:20 Temperature 96.3 F L 96.5 F L 96.6 F L Pulse Rate 120 H 113 H 127 H Respiratory Rate 28 H 26 H 28 H Blood Pressure 110/82 106/80 103/85 Pulse Oximetry 100 100 100 Oxygen Delivery Oxygen Flow Rate 02/23/25 07:26 02/23/25 07:45 02/23/25 07:50 Temperature 96.6 F L 96.9 F L 97.0 F L Pulse Rate 124 H 127 H 124 H Respiratory Rate 27 H 35 H 34 H Blood Pressure 107/83 106/76 101/80 Pulse Oximetry 100 100 100 Oxygen Delivery Oxygen Flow Rate 02/23/25 07:57 02/23/25 08:00 02/23/25 08:21 Temperature 97.1 F L Pulse Rate 136 H 120 H 124 H Respiratory Rate 28 H 38 H Blood Pressure 104/88 113/79 Pulse Oximetry 100 100 Oxygen Delivery BiPAP Oxygen Flow Rate 02/23/25 08:30 02/23/25 08:45 02/23/25 08:50 Temperature 97.4 F L 97.6 F 97.7 F Pulse Rate 123 H 139 H 122 H Respiratory Rate 34 H 33 H 33 H Blood Pressure 104/86 96/65 L 111/88 Pulse Oximetry 100 Oxygen Delivery Oxygen Flow Rate 02/23/25 08:55 02/23/25 09:00 02/23/25 09:05 Temperature 97.7 F 97.8 F 97.8 F Pulse Rate 126 H 118 H 114 H Respiratory Rate 31 H 41 H 24 H Blood Pressure 97/81 L 101/79 105/80 Pulse Oximetry 96 Oxygen Delivery Oxygen Flow Rate 02/23/25 09:10 02/23/25 09:15 02/23/25 09:20 Temperature 97.8 F 97.9 F 97.9 F Pulse Rate 122 H 118 H 129 H Respiratory Rate 33 H 25 H 31 H Blood Pressure 102/91 H 105/79 96/72 L Pulse Oximetry Oxygen Delivery Oxygen Flow Rate 02/23/25 09:25 02/23/25 09:30 02/23/25 09:33 Temperature 98.0 F 98.0 F Pulse Rate 127 H 126 H 111 H Respiratory Rate 28 H 28 H 27 H Blood Pressure 99/78 L 108/75 Pulse Oximetry 99 Oxygen Delivery BiPAP Oxygen Flow Rate 02/23/25 09:45 02/23/25 10:40 02/23/25 10:45 Temperature 98.1 F 98.3 F 98.3 F Pulse Rate 119 H 113 H 113 H Respiratory Rate 22 H 24 H 27 H Blood Pressure 96/74 L 101/72 100/81 Pulse Oximetry 100 Oxygen Delivery Oxygen Flow Rate 02/23/25 10:50 02/23/25 10:55 02/23/25 11:00 Temperature 98.3 F 98.3 F 98.3 F Pulse Rate 126 H 118 H 113 H Respiratory Rate 21 H 33 H 34 H Blood Pressure 95/69 L 98/77 L 99/77 L Pulse Oximetry Oxygen Delivery Oxygen Flow Rate 02/23/25 11:05 02/23/25 11:10 02/23/25 11:15 Temperature 98.3 F 98.4 F 98.4 F Pulse Rate 127 H 115 H 139 H Respiratory Rate 31 H 34 H 27 H Blood Pressure 106/80 92/66 L 95/69 L Pulse Oximetry Oxygen Delivery Oxygen Flow Rate 02/23/25 11:20 02/23/25 11:25 02/23/25 11:30 Temperature 98.4 F 98.4 F 98.4 F Pulse Rate 116 H 121 H 120 H Respiratory Rate 31 H 25 H 32 H Blood Pressure 103/77 108/79 90/72 L Pulse Oximetry 80 L Oxygen Delivery Oxygen Flow Rate 02/23/25 11:33 02/23/25 11:35 02/23/25 11:41 Temperature 98.4 F 98.4 F Pulse Rate 130 H 112 H 123 H Respiratory Rate 31 H 32 H 31 H Blood Pressure 102/66 85/69 L Pulse Oximetry 92 Oxygen Delivery BiPAP Oxygen Flow Rate 02/23/25 11:45 02/23/25 11:50 02/23/25 11:55 Temperature 98.4 F 98.4 F 98.5 F Pulse Rate 111 H 128 H 124 H Respiratory Rate 26 H 26 H 27 H Blood Pressure 99/70 L 95/76 L 94/59 L Pulse Oximetry Oxygen Delivery Oxygen Flow Rate 02/23/25 12:00 02/23/25 12:05 02/23/25 12:22 Temperature 98.5 F 98.5 F Pulse Rate 116 H 107 H 122 H Respiratory Rate 30 H 32 H 31 H Blood Pressure 87/79 L 105/77 Pulse Oximetry 98 100 Oxygen Delivery BiPAP Oxygen Flow Rate 02/23/25 12:48 02/23/25 13:40 Temperature Pulse Rate Respiratory Rate Blood Pressure 113/67 Pulse Oximetry Oxygen Delivery BiPAP Oxygen Flow Rate Intake/Output Intake/Output: Intake & Output 02/20/25 02/21/25 02/22/25 02/23/25 23:59 23:59 23:59 23:59 Intake Total 4507.8 / 907.1 Output Total 350 Balance 4157.8 / 907.1 Meds/Results Medications: Active Medications Generic Name Dose Route Start Last Admin Trade Name Freq PRN Reason Stop Dose Admin Albuterol/Ipratropium 3 ml 02/23/25 14:45 02/23/25 17:41 Ipratropium 0.5 Mg/Albuterol Sulfate 2.5 Mg (Base) Ampul.Neb 3 Ml INHALATION Not Given Q6HRT [facility] [place] Budesonide 0.5 mg 02/23/25 20:00 Budesonide Respule Neb 0.5 Mg/2 Ml Amp INHALATION Q12HRT [facility] [place] Enoxaparin Sodium 40 mg 02/23/25 14:50 02/23/25 15:47 Enoxaparin 40 Mg/0.4 Ml Syringe SUB-Q 40 mg DAILY BRANDEN Administration Fluticasone/Umeclidinium/Vilanterol 2 puff 02/23/25 20:00 Fluticasone/Umeclidin/Vilanter 100-62.5-25 Mcg Ellipta INHALATION Q12HRT [facility] [place] Ceftriaxone Sodium 1 gm/ 50 mls @ 100 mls/hr 02/23/25 21:00 Sodium Chloride IVPB Q24H [facility] [place] Doxycycline Hyclate 100 mg/ 100 mls @ 100 mls/hr 02/23/25 11:00 02/23/25 12:26 Sodium Chloride IVPB 02/27/25 11:59 Infused Q12H BRANDEN Infusion Amiodarone HCl/Dextrose 360 mg in 200 mls @ 33.333 mls/hr 02/23/25 07:00 02/23/25 17:39 Nexterone 360 Mg/D5w 200 Ml IV CONT 1 mg/min .Q6H BRANDEN 33.33 mls/hr 1 MG/MIN Administration Norepinephrine Bitartrate 8 mg in 250 mls @ 18.75 mls/hr 02/23/25 04:45 02/23/25 16:15 Levophed 8 Mg/D5w 250 Ml IV CONT 10 mcg/min .[id number] BRANDEN 18.75 mls/hr Protocol Titration 10 MCG/MIN Sodium Bicarbonate 150 meq/ 1,100 mls @ 75 mls/hr 02/23/25 15:30 02/23/25 15:47 Sterile Water IV CONT 75 mls/hr .[id number] BRANDEN Administration Albumin Human 100 mls @ 60 mls/hr 02/23/25 18:00 02/23/25 17:57 Albutein IVPB 02/24/25 13:39 60 mls/hr Q6HR BRANDEN Administration Vancomycin HCl 1,750 mg in 500 mls @ 250 mls/hr 02/23/25 17:00 02/23/25 16:43 Vancomycin 1,750 Mg/Ns 500 Ml IVPB 02/23/25 18:59 250 mls/hr ONCE ONE Administration Vancomycin HCl 1,500 mg in 500 mls @ 250 mls/hr 02/24/25 17:00 Vancomycin 1,500 Mg/Ns 500 Ml IVPB Q24H BRANDEN Pantoprazole Sodium 40 mg 02/23/25 14:50 02/23/25 15:47 Pantoprazole Sodium Iv 40 Mg Vial IV PUSH 40 mg QAM BRANDEN Administration Perflutren Lipid Microsphere 0 ml 02/23/25 13:08 Perflutren Lipid Microspheres 1.5 Ml Vial Diluted To 10 Ml Total Volume IV PUSH 02/26/25 13:08 ONCE PRN adequate visualization Protocol Sodium Chloride 10 ml 02/23/25 14:00 02/23/25 14:58 Central Line Flush IV PUSH 10 ml Q8HR BRANDEN Administration Sodium Chloride 10 ml 02/23/25 13:40 Central Line Flush IV PUSH PRN PRN with TPN bag changes Sodium Chloride 20 ml 02/23/25 13:40 Central Line Flush IV PUSH PRN PRN after blood draws Radiology Results: ITS Impressions Soft Tissue Neck CT 02/23/25 09:13 IMPRESSION: 1. Stable enlarged right high internal jugular chain alexis mass, consistent with metastatic squamous cell carcinoma or less likely lymphoma. Ultrasound-guided core needle biopsy is recommended. 2. Left pleural effusion. Chest/Abdomen/Pelvis CTA 02/23/25 09:38 IMPRESSION: CHEST- 1. No acute cardiopulmonary findings. 2. Except small left pleural effusion. ABDOMEN/PELVIS- 1. Suspect colitis. Recommend colonoscopy given focal thickening within descending segment. 2. Otherwise no acute abnormality within abdomen or pelvis. 3. L1 compression fracture. 4. Additional findings per above. Chest X-Ray 02/23/25 13:45 IMPRESSION: 1. Left upper extremity PICC line tip at the caudal superior vena cava. 2. Unchanged elevation left hemidiaphragm left pleural effusion and mild bibasilar opacities which could represent atelectasis or pneumonia. Labs Labs: Laboratory Results - last 24 hr 02/22/25 02/22/25 02/23/25 23:15 23:37 01:42 WBC 12.9 H RBC 3.87 L Hgb 9.4 L Hct 30.4 L MCV 78.6 L MCH 24.3 L MCHC 30.9 L RDW 17.1 H Plt Count 163 MPV 10.2 Immature Gran % (Auto) 0.4 Neut % (Auto) 75.9 H Lymph % (Auto) 12.6 L Hawkins % (Auto) 10.8 H Eos % (Auto) 0.1 Baso % (Auto) 0.2 Lymph # (Auto) 1.63 Hawkins # (Auto) 1.4 H Eos # (Auto) 0.0 Baso # (Auto) 0.0 Abs Immat Gran (auto) 0.05 H Absolute Neuts (auto) 9.8 H Absolute Nucleated RBC 0.020 H Nucleated RBC % 0.2 PT 21.2 H INR 1.9 APTT 36.3 Puncture Site Right brachial ABG pH 7.280 L* ABG pCO2 53.6 H ABG pO2 102.3 H ABG PO2/FiO2 Ratio 3.20 ABG HCO3 24.6 ABG O2 Saturation 96.9 ABG O2 Content 13.8 L ABG Base Excess -2.4 A-a Gradient 3.2 Oxyhemoglobin 95.8 Carboxyhemoglobin Methemoglobin Reduced Hemoglobin Total Hemoglobin 10.1 L O2 Delivery Device Nasal cannula O2 Liters/Min 3.0 Vent Rate FiO2 32 Expiratory Pressure Inspiratory Pressure Sodium 130 L 129 L Potassium 4.0 4.4 Chloride 92 L 95 L Carbon Dioxide 31 H 24 Anion Gap 7 10 BUN 37 H D 36 H Creatinine 1.06 1.02 Estim Creat Clear Calc 50 52 Estimated GFR > 60 > 60 Glucose 200 H 188 H Lactic Acid 4.9 H* Calcium 8.7 7.7 L Phosphorus 3.0 Magnesium 2.3 Total Bilirubin 2.7 H 2.4 H Direct Bilirubin 0.6 H Indirect Bilirubin 0.5 AST 1029 H 737 H ALT 1168 H 928 H Alkaline Phosphatase 161 H 120 Troponin I 0.014 C-Reactive Protein 6.2 H NT-Pro-B Natriuret Pep 6610 H Total Protein 6.7 5.4 L Albumin 3.3 L 2.5 L Lipase 129 TSH (Reflex) 4.390 Free T4 1.47 Total T3 1.80 H Urine Color Dark yellow Urine Appearance Cloudy H Urine pH 5.5 Ur Specific Mozier 1.019 Urine Protein Trace Urine Glucose (UA) Negative Urine Ketones Trace H Ur Blood (Man) Negative Urine Nitrate Negative Urine Bilirubin 1+ H Urine Urobilinogen 2.0 H Add Ur Microanalysis Reviewed Leukocyte Esterase Rfl Negative Urine RBC 0-2 Urine WBC 0-5 Ur Squamous Epith Cells None seen Urine Bacteria None seen Urine Casts 0-2 Hyaline Casts Present Nasal MRSA (PCR) Salicylates < 1.0 L Acetaminophen < 10 L Hepatitis A IgM Ab Negative Hep Bs Antigen Negative Hep B Core IgM Ab Negative Hepatitis C Ab Screen Negative Influenza A (RT-PCR) Negative Influenza B (RT-PCR) Negative RSV (RT-PCR) Negative SARS-CoV-2 RNA (RT-PCR) Negative 02/23/25 02/23/25 02/23/25 01:57 04:26 08:43 WBC RBC Hgb Hct MCV MCH MCHC RDW Plt Count MPV Immature Gran % (Auto) Neut % (Auto) Lymph % (Auto) Hawkins % (Auto) Eos % (Auto) Baso % (Auto) Lymph # (Auto) Hawkins # (Auto) Eos # (Auto) Baso # (Auto) Abs Immat Gran (auto) Absolute Neuts (auto) Absolute Nucleated RBC Nucleated RBC % PT INR APTT Puncture Site Right brachial ABG pH 7.264 L* ABG pCO2 41.4 ABG pO2 148.0 H ABG PO2/FiO2 Ratio 2.47 ABG HCO3 18.3 L ABG O2 Saturation 98.6 ABG O2 Content 12.0 L ABG Base Excess -8.1 A-a Gradient 234.3 Oxyhemoglobin 97.7 Carboxyhemoglobin Methemoglobin Reduced Hemoglobin Total Hemoglobin 8.5 L O2 Delivery Device Non-invasive vent O2 Liters/Min Not Reportable Vent Rate 12 FiO2 60 Expiratory Pressure 6 Inspiratory Pressure 12 Sodium Potassium Chloride Carbon Dioxide Anion Gap BUN Creatinine Estim Creat Clear Calc Estimated GFR Glucose Lactic Acid 5.6 H* Calcium Phosphorus Magnesium Total Bilirubin Direct Bilirubin Indirect Bilirubin AST ALT Alkaline Phosphatase Troponin I 0.012 0.022 D C-Reactive Protein NT-Pro-B Natriuret Pep Total Protein Albumin Lipase TSH (Reflex) Free T4 Total T3 Urine Color Urine Appearance Urine pH Ur Specific Mozier Urine Protein Urine Glucose (UA) Urine Ketones Ur Blood (Man) Urine Nitrate Urine Bilirubin Urine Urobilinogen Add Ur Microanalysis Leukocyte Esterase Rfl Urine RBC Urine WBC Ur Squamous Epith Cells Urine Bacteria Urine Casts Hyaline Casts Nasal MRSA (PCR) Salicylates Acetaminophen Hepatitis A IgM Ab Hep Bs Antigen Hep B Core IgM Ab Hepatitis C Ab Screen Influenza A (RT-PCR) Influenza B (RT-PCR) RSV (RT-PCR) SARS-CoV-2 RNA (RT-PCR) 02/23/25 02/23/25 02/23/25 12:25 12:36 13:06 WBC RBC Hgb Hct MCV MCH MCHC RDW Plt Count MPV Immature Gran % (Auto) Neut % (Auto) Lymph % (Auto) Hawkins % (Auto) Eos % (Auto) Baso % (Auto) Lymph # (Auto) Hawkins # (Auto) Eos # (Auto) Baso # (Auto) Abs Immat Gran (auto) Absolute Neuts (auto) Absolute Nucleated RBC Nucleated RBC % PT INR APTT Puncture Site Right radial ABG pH 7.324 L ABG pCO2 32.0 L ABG pO2 189.6 H ABG PO2/FiO2 Ratio 3.16 ABG HCO3 16.3 L ABG O2 Saturation 99.2 ABG O2 Content 13.5 L ABG Base Excess -8.8 A-a Gradient 203.0 Oxyhemoglobin 98.8 Carboxyhemoglobin 0.9 Methemoglobin 0.0 Reduced Hemoglobin 0.3 Total Hemoglobin 9.4 L O2 Delivery Device Non-invasive vent O2 Liters/Min Not Reportable Vent Rate 12 FiO2 60 Expiratory Pressure 6 Inspiratory Pressure 12 Sodium Potassium Chloride Carbon Dioxide Anion Gap BUN Creatinine Estim Creat Clear Calc Estimated GFR Glucose Lactic Acid 7.9 H* Calcium Phosphorus Magnesium Total Bilirubin Direct Bilirubin Indirect Bilirubin AST ALT Alkaline Phosphatase Troponin I C-Reactive Protein NT-Pro-B Natriuret Pep Total Protein Albumin Lipase TSH (Reflex) Free T4 Total T3 Urine Color Urine Appearance Urine pH Ur Specific Mozier Urine Protein Urine Glucose (UA) Urine Ketones Ur Blood (Man) Urine Nitrate Urine Bilirubin Urine Urobilinogen Add Ur Microanalysis Leukocyte Esterase Rfl Urine RBC Urine WBC Ur Squamous Epith Cells Urine Bacteria Urine Casts Hyaline Casts Nasal MRSA (PCR) Not detected Salicylates Acetaminophen Hepatitis A IgM Ab Hep Bs Antigen Hep B Core IgM Ab Hepatitis C Ab Screen Influenza A (RT-PCR) Influenza B (RT-PCR) RSV (RT-PCR) SARS-CoV-2 RNA (RT-PCR)
[2025-02-23] MEDS: LIDOCAINE 1% PF INJ 5 ML VIAL INFILTRATE (13:15)
--- NOTE | 2025-02-23 13:59 | WPDCNINT ---
Assessment and Plan Assessment and plan (1) Shock: Code(s): R57.9 - Shock, unspecified Status: Acute Assessment and Plan: 02/22: Patient presented with shortness of breath, -was hypotensive received 4 L of IV fluid bolus in the ED. Patient was having trouble breathing so they gave him Lasix. He dropped his blood pressures again, started on Levophed through a peripheral IV and now a PICC line was inserted in the ER Laura Levophed running through the PICC line. -02/22: Started on ceftriaxone, doxycycline and received 1 dose of Zosyn -02/23: Will start vancomycin, will deescalate once cultures have resulted -02/22: Blood cultures have been obtained and pending -lactic acid have been increased despite adequate fluids, could be related to liver dysfunction or hypoperfusion -will add albumin for intravascular volume expansion -trend lactic levels -currently on Levophed, maintain MAP > 65 mmHg or SBP > 100 mmHg -will obtain repeat labs (2) V-tach: Code(s): I47.20 - Ventricular tachycardia, unspecified Status: Acute Assessment and Plan: Patient had a run of V-tach in the ED, was started on amiodarone, will continue -patient does have a history of paroxysmal AFib, on PO amiodarone at home (3) Acute respiratory failure: Code(s): J96.00 - Acute respiratory failure, unspecified whether with hypoxia or hypercapnia Status: Acute Assessment and Plan: Patient has a history of COPD, complained of shortness of breath on admission which has been worsening for the last few days, he has not been taking breathing treatments at home -patient was hypercapnic on admission, was placed on BiPAP -repeat blood gases look better -continue BiPAP for now -continue DuoNeb -continue home Pulmicort and Breztri -COVID, influenza and RSV were negative (4) Elevated liver enzymes: Code(s): R74.8 - Abnormal levels of other serum enzymes Status: Acute Assessment and Plan: Elevated liver enzyme could be related to hypoperfusion -will obtain RUQ ultrasound -hepatitis panel is negative (5) Mass of right side of neck: Code(s): R22.1 - Localized swelling, mass and lump, neck Status: Acute Assessment and Plan: ER discussed with ENT at [facility] where accept the patient, they were waiting for a bed at [facility] so in the interim patient has been transferred to the ICU for further management. Plan DVT prophylaxis: Lovenox Stress ulcer prophylaxis: Protonix Nutrition: NPO for now Code Status: No CPR, okay for intubate Critical Care Time Spent: 48 minutes Due to a high probability of clinically significant, life threatening deterioration, the patient required my highest level of preparedness to intervene emergently and I personally spent this critical care time directly and personally managing the patient. This critical care time included obtaining a history; examining the patient; pulse oximetry; ordering and review of studies; arranging urgent treatment with development of a management plan; evaluation of patient's response to treatment; frequent reassessment; and discussions with other providers. It was exclusive of separately billable procedures and treating other patients and teaching time. Please see Assessment and Plan section and the rest of the note for further information on patient assessment and treatment This dictation may have been done utilizing a voice recognition system. Attempts have been made to correct errors. However, there may be uncorrected grammatical, spelling, and recognitions errors present. [employer] Consult Note Consult date: 02/23/25 Reason for consult: Hypotension, Shock, dyspnea, nonsustained V-tach, acute respiratory failure, lactic acidosis, elevated liver enzymes and bilirubin HPI: Lennox Bowden is a 69 year old male with significant past medical history of anxiety, occlusion of the right jugular vein, neck mass on the right side, COPD, congestive heart failure, echocardiogram in November 2020 showed severe mitral regurg, EF of 30-45%, moderate aortic valve sclerosis with a valve area of 1.30 centimeters squared, moderate aortic stenosis, moderate aortic regurg. Patient presented to the ED on 02/22/2025 with shortness of breath for the past few days, had an incidental fall on 02/21/2025. Patient has been having increasing shortness of breath and has not been taking much of any breathing treatments at home. He prefers to lay on his left side in terms of breathing. Denies any melena or hematochezia, no fevers or chills. Denies any focal weakness or numbness. Continues to have regular urine output. Denies any chest pain. He was recently diagnosed with a right neck mass which is being worked up upon at [facility]. In the ER patient was hypotensive, was given IV fluids a total of 4000 mL. He was then given some Lasix overnight. He was placed on supplemental oxygen which later had to be switched to a BiPAP for hypercapnia. -chest x-ray on admission did not show any acute cardiopulmonary finding -CT soft tissue neck : Stable enlarged right high internal jugular chain alexis mass, consistent with metastatic squamous cell carcinoma or less likely lymphoma. Ultrasound-guided core needle biopsy is recommended. -CT chest abdomen and pelvis: No acute cardiopulmonary findings except small left pleural effusion. Suspect colitis given focal thickening within descending segment otherwise no acute abnormality within abdominal or pelvis L1 compression fracture CBC 12.9, hemoglobin 9.4, platelet count 160, INR 1.9, lactic of 7.9, sodium 129, potassium 4.0, creatinine 1.2, BUN 36, CO2 24, blood sugars 188. Total bilirubin of 2.7, AST 1029, ALT 1168, alk phos 161. CRP 6.2, proBNP 6610, lipase 129. UA was unremarkable Patient was seen and examined the ER, is awake, alert, follows simple commands and nods to questions, patient is on BiPAP, difficult to understand. He is on Levophed at 5 mcg/min. O2 sats have been 100%, tachycardic on amiodarone infusion. Complains of shortness of breath, denies any pain at this time except on the right side of his neck. Denies any chest pain, fevers, chills, no abdominal pain, nausea vomiting at this time. Review of Systems Review of Systems: All systems reviewed & are unremarkable except as noted in HPI and below [facility] Past Medical History Medical History (Updated 02/23/25 @ 15:22 by Barb Peguero MD) Anxiety about health Occlusion of right jugular vein Abnormal CT scan Abnormal finding on ultrasound Tachycardia Mass of right submandibular region BMI 26.0-26.9,adult BMI 22.0-22.9, adult Coronary artery disease Bilateral hand numbness Chronic low back pain COPD (chronic obstructive pulmonary disease) BMI 23.0-23.9, adult Arthralgia Surgical History Surgical History History of cataract surgery Family History Family History Father , lung cancer Cancer Mother No problems noted. Sibling No problems noted. 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 Gender identity (if verbalized by the patient): Male Meds Home Medications and Allergies Home Medications ?Medication ?Instructions ?Recorded ?Confirmed ?Type aspirin 81 mg chewable tablet 81 mg PO DAILY #30 tabs 12/23/20 01/23/25 Rx ipratropium 0.5 mg-albuterol 3 mg 3 ml inhalation Q6H PRN wheezing 04/29/23 01/23/25 Rx (2.5 mg base)/3 mL nebulization #90 mL soln budesonide 0.5 mg/2 mL suspension 0.5 mg inhalation BID PRN 09/09/23 01/23/25 History for nebulization (Pulmicort) budesonide 160 mcg-glycopyr 9 2 inh inhalation BID 09/09/23 01/23/25 History mcg-formot 4.8 mcg/actuation HFA inhaler (Breztri Aerosphere) docusate sodium 100 mg capsule 100 mg PO BID 09/09/23 01/23/25 History (Colace) furosemide 20 mg tablet (Lasix) 20 mg PO QAM #30 tabs 09/09/23 01/23/25 Rx metoprolol tartrate 25 mg tablet 25 mg PO BID 09/09/23 01/23/25 History ondansetron HCl 4 mg tablet 4 mg PO Q8H PRN 09/09/23 01/23/25 History polyethylene glycol 3350 17 17 g PO DAILY 09/09/23 01/23/25 History gram/dose oral powder (Miralax) thiamine HCl (vitamin B1) 100 mg 100 mg PO DAILY 09/09/23 01/23/25 History tablet albuterol sulfate 90 mcg/actuation 1 inh inhalation Q4H PRN shortness 11/21/23 01/23/25 Rx aerosol inhaler of breath or wheezing #8.5 grams mupirocin 2 % topical ointment 1 applic topical BID #15 grams 12/30/23 01/23/25 Rx pantoprazole 40 mg tablet,delayed See Rx Instructions .Route 04/10/24 01/23/25 Rx release .COMPLEX #90 tabs folic acid 1 mg tablet 1 mg PO DAILY #30 tabs 04/29/24 01/23/25 Rx tizanidine 2 mg tablet See Rx Instructions .Route 05/29/24 01/23/25 Rx .COMPLEX #30 tabs amiodarone 200 mg tablet 200 mg PO DAILY #90 tabs 08/04/24 01/23/25 Rx atorvastatin 80 mg tablet 80 mg PO DAILY #90 tabs 10/18/24 01/23/25 Rx sertraline 50 mg tablet 50 mg PO QHS #30 tabs 01/30/25 01/30/25 Rx buspirone 10 mg tablet 10 mg PO BID #60 tabs 01/31/25 Rx tramadol 50 mg tablet 50 mg PO Q6H PRN pain #30 tabs 02/14/25 Rx Allergies Allergy/AdvReac Type Severity Reaction Status Date / Time lorazepam (From Ativan) AdvReac Hallucinati Verified 02/23/25 14:36 ng Vital Signs Vital Signs - 24 hr 02/22/25 22:39 02/22/25 23:10 02/22/25 23:15 Temperature 97.4 F L Pulse Rate 124 H 113 H Respiratory Rate 20 26 H Blood Pressure 139/78 Pulse Oximetry 93 95 Oxygen Delivery Nasal Cannula Nasal Cannula Oxygen Flow Rate 3 3 02/22/25 23:54 02/22/25 23:55 02/23/25 00:23 Temperature Pulse Rate 123 H 148 H Respiratory Rate Blood Pressure 103/85 Pulse Oximetry 98 Oxygen Delivery Nasal Cannula Oxygen Flow Rate 3 02/23/25 00:35 02/23/25 00:44 02/23/25 00:47 Temperature Pulse Rate 116 H 125 H 106 H Respiratory Rate Blood Pressure 103/82 103/82 Pulse Oximetry Oxygen Delivery Oxygen Flow Rate 02/23/25 02:07 02/23/25 02:10 02/23/25 02:18 Temperature Pulse Rate 120 H 118 H Respiratory Rate 26 H 30 H Blood Pressure 113/86 Pulse Oximetry 100 88 L 100 Oxygen Delivery BiPAP Non-Rebreather Mask Oxygen Flow Rate 15 02/23/25 03:21 02/23/25 03:58 02/23/25 04:22 Temperature Pulse Rate 101 H 114 H 106 H Respiratory Rate 26 H 24 H Blood Pressure 105/71 54/39 L 92/79 L Pulse Oximetry 98 100 Oxygen Delivery Oxygen Flow Rate 02/23/25 04:35 02/23/25 04:50 02/23/25 04:56 Temperature 95.5 F L 95.1 F L Pulse Rate 117 H 108 H Respiratory Rate 30 H Blood Pressure 88/70 L 91/74 L Pulse Oximetry 100 Oxygen Delivery Oxygen Flow Rate 02/23/25 05:06 02/23/25 05:10 02/23/25 05:15 Temperature 95.1 F L Pulse Rate 113 H Respiratory Rate 30 H Blood Pressure 98/74 L 101/71 Pulse Oximetry Oxygen Delivery Oxygen Flow Rate 02/23/25 05:15 02/23/25 05:20 02/23/25 05:21 Temperature Pulse Rate 112 H 120 H 103 H Respiratory Rate 31 H 26 H 23 H Blood Pressure 112/79 116/80 Pulse Oximetry 100 Oxygen Delivery BiPAP Oxygen Flow Rate 02/23/25 05:25 02/23/25 05:30 02/23/25 05:35 Temperature Pulse Rate 111 H 117 H 125 H Respiratory Rate 29 H 27 H 29 H Blood Pressure 112/80 115/93 H 107/93 H Pulse Oximetry Oxygen Delivery Oxygen Flow Rate 02/23/25 05:40 02/23/25 05:45 02/23/25 05:50 Temperature Pulse Rate 116 H 122 H 124 H Respiratory Rate 31 H 36 H 28 H Blood Pressure 102/85 113/90 106/79 Pulse Oximetry 93 Oxygen Delivery Oxygen Flow Rate 02/23/25 05:55 02/23/25 05:56 02/23/25 06:00 Temperature 90.1 F L 93.6 F L Pulse Rate 117 H 120 H 108 H Respiratory Rate 31 H 32 H 35 H Blood Pressure 108/96 H 111/86 Pulse Oximetry 84 L Oxygen Delivery Oxygen Flow Rate 02/23/25 06:01 02/23/25 06:05 02/23/25 06:06 Temperature 93.8 F L 94.4 F L 94.5 F L Pulse Rate 120 H 126 H 119 H Respiratory Rate 31 H 28 H 31 H Blood Pressure 107/81 Pulse Oximetry 100 Oxygen Delivery Oxygen Flow Rate 02/23/25 06:10 02/23/25 06:15 02/23/25 06:16 Temperature 94.9 F L 95.2 F L 95.3 F L Pulse Rate 121 H 125 H 125 H Respiratory Rate 31 H 29 H 32 H Blood Pressure 99/84 L 116/84 Pulse Oximetry Oxygen Delivery Oxygen Flow Rate 02/23/25 06:20 02/23/25 06:25 02/23/25 06:30 Temperature 95.4 F L 95.6 F L 95.7 F L Pulse Rate 123 H 124 H 124 H Respiratory Rate 35 H 33 H 36 H Blood Pressure 107/77 102/91 H 107/93 H Pulse Oximetry Oxygen Delivery Oxygen Flow Rate 02/23/25 06:31 02/23/25 06:35 02/23/25 06:41 Temperature 95.7 F L 95.8 F L 95.9 F L Pulse Rate 112 H 118 H 113 H Respiratory Rate 30 H 25 H 26 H Blood Pressure 106/85 119/86 Pulse Oximetry Oxygen Delivery Oxygen Flow Rate 02/23/25 06:45 02/23/25 06:46 02/23/25 06:48 Temperature 96.0 F L 96.0 F L 96.0 F L Pulse Rate 123 H 117 H Respiratory Rate 24 H 26 H Blood Pressure 118/87 Pulse Oximetry Oxygen Delivery Oxygen Flow Rate 02/23/25 06:50 02/23/25 06:55 02/23/25 07:00 Temperature 96.1 F L 96.2 F L 96.2 F L Pulse Rate 122 H 121 H 124 H Respiratory Rate 26 H 27 H 26 H Blood Pressure 109/86 117/84 119/88 Pulse Oximetry 100 100 Oxygen Delivery Oxygen Flow Rate 02/23/25 07:00 02/23/25 07:05 02/23/25 07:15 Temperature 96.3 F L 96.5 F L Pulse Rate 120 H 120 H 113 H Respiratory Rate 28 H 26 H Blood Pressure 110/82 106/80 Pulse Oximetry 100 100 Oxygen Delivery Oxygen Flow Rate 02/23/25 07:20 02/23/25 07:26 02/23/25 07:45 Temperature 96.6 F L 96.6 F L 96.9 F L Pulse Rate 127 H 124 H 127 H Respiratory Rate 28 H 27 H 35 H Blood Pressure 103/85 107/83 106/76 Pulse Oximetry 100 100 100 Oxygen Delivery Oxygen Flow Rate 02/23/25 07:50 02/23/25 07:57 02/23/25 08:00 Temperature 97.0 F L 97.1 F L Pulse Rate 124 H 136 H 120 H Respiratory Rate 34 H 28 H 38 H Blood Pressure 101/80 104/88 Pulse Oximetry 100 100 100 Oxygen Delivery BiPAP Oxygen Flow Rate 02/23/25 08:21 02/23/25 08:30 02/23/25 08:45 Temperature 97.4 F L 97.6 F Pulse Rate 124 H 123 H 139 H Respiratory Rate 34 H 33 H Blood Pressure 113/79 104/86 96/65 L Pulse Oximetry 100 Oxygen Delivery Oxygen Flow Rate 02/23/25 08:50 02/23/25 08:55 02/23/25 09:00 Temperature 97.7 F 97.7 F 97.8 F Pulse Rate 122 H 126 H 118 H Respiratory Rate 33 H 31 H 41 H Blood Pressure 111/88 97/81 L 101/79 Pulse Oximetry Oxygen Delivery Oxygen Flow Rate 02/23/25 09:05 02/23/25 09:10 02/23/25 09:15 Temperature 97.8 F 97.8 F 97.9 F Pulse Rate 114 H 122 H 118 H Respiratory Rate 24 H 33 H 25 H Blood Pressure 105/80 102/91 H 105/79 Pulse Oximetry 96 Oxygen Delivery Oxygen Flow Rate 02/23/25 09:20 02/23/25 09:25 02/23/25 09:30 Temperature 97.9 F 98.0 F 98.0 F Pulse Rate 129 H 127 H 126 H Respiratory Rate 31 H 28 H 28 H Blood Pressure 96/72 L 99/78 L 108/75 Pulse Oximetry Oxygen Delivery Oxygen Flow Rate 02/23/25 09:33 02/23/25 09:45 02/23/25 10:40 Temperature 98.1 F 98.3 F Pulse Rate 111 H 119 H 113 H Respiratory Rate 27 H 22 H 24 H Blood Pressure 96/74 L 101/72 Pulse Oximetry 99 100 Oxygen Delivery BiPAP Oxygen Flow Rate 02/23/25 10:45 02/23/25 10:50 02/23/25 10:55 Temperature 98.3 F 98.3 F 98.3 F Pulse Rate 113 H 126 H 118 H Respiratory Rate 27 H 21 H 33 H Blood Pressure 100/81 95/69 L 98/77 L Pulse Oximetry Oxygen Delivery Oxygen Flow Rate 02/23/25 11:00 02/23/25 11:05 02/23/25 11:10 Temperature 98.3 F 98.3 F 98.4 F Pulse Rate 113 H 127 H 115 H Respiratory Rate 34 H 31 H 34 H Blood Pressure 99/77 L 106/80 92/66 L Pulse Oximetry Oxygen Delivery Oxygen Flow Rate 02/23/25 11:15 02/23/25 11:20 02/23/25 11:25 Temperature 98.4 F 98.4 F 98.4 F Pulse Rate 139 H 116 H 121 H Respiratory Rate 27 H 31 H 25 H Blood Pressure 95/69 L 103/77 108/79 Pulse Oximetry 80 L Oxygen Delivery Oxygen Flow Rate 02/23/25 11:30 02/23/25 11:33 02/23/25 11:35 Temperature 98.4 F 98.4 F Pulse Rate 120 H 130 H 112 H Respiratory Rate 32 H 31 H 32 H Blood Pressure 90/72 L 102/66 Pulse Oximetry 92 Oxygen Delivery BiPAP Oxygen Flow Rate 02/23/25 11:41 02/23/25 11:45 02/23/25 11:50 Temperature 98.4 F 98.4 F 98.4 F Pulse Rate 123 H 111 H 128 H Respiratory Rate 31 H 26 H 26 H Blood Pressure 85/69 L 99/70 L 95/76 L Pulse Oximetry Oxygen Delivery Oxygen Flow Rate 02/23/25 11:55 02/23/25 12:00 02/23/25 12:05 Temperature 98.5 F 98.5 F 98.5 F Pulse Rate 124 H 116 H 107 H Respiratory Rate 27 H 30 H 32 H Blood Pressure 94/59 L 87/79 L 105/77 Pulse Oximetry 98 Oxygen Delivery Oxygen Flow Rate 02/23/25 12:22 02/23/25 12:48 Temperature Pulse Rate 122 H Respiratory Rate 31 H Blood Pressure Pulse Oximetry 100 Oxygen Delivery BiPAP BiPAP Oxygen Flow Rate Exam Narrative: General: Patient looks older than his age, ill-appearing, on BiPAP, currently in no acute distress HEENT:? Pupils equal and reactive, sclerae is icteric, BiPAP mask in place Neck:? Right-sided indurated mass along the sternocleidomastoid, tender to palpation, no warmth or erythema noted Respiratory:? Coarse breath sounds bilaterally, decreased at bases, adequate air entry Cardiac:? Irregularly irregular, tachycardia Abdomen:? Soft, nontender, nondistended, hypoactive bowel sounds Extremities:? Bilateral of all extremities with bruising and edema, lower extremity edema noted Neuro:? Patient is awake, alert, follows simple commands and nods to questions appropriately Skin:? Bruising on the skin noted on the upper extremities bilaterally Psych:? Normal mentation, and affect Results Labs 02/22/25 23:15 02/23/25 01:42 Labs: Short CBC 02/22/25 Range/Units 23:15 WBC 12.9 H (4.5-10.0) K/mm3 Hgb 9.4 L (14.0-18.0) g/dL Hct 30.4 L (42.0-52.0) % Plt Count 163 (150-375) k/mm3 BMP 02/22/25 02/23/25 23:15 01:42 Sodium 130 L 129 L Potassium 4.0 4.4 Chloride 92 L 95 L Carbon Dioxide 31 H 24 BUN 37 H D 36 H Creatinine 1.06 1.02 Glucose 200 H 188 H Calcium 8.7 7.7 L Cardiac Enzymes 02/22/25 02/23/25 02/23/25 Range/Units 23:15 01:57 08:43 Troponin I 0.014 0.012 0.022 D (0.000-0.034) ng/mL Liver Function 02/22/25 02/23/25 Range/Units 23:15 01:42 Total Bilirubin 2.7 H 2.4 H (0.2-1.3) mg/dL Direct Bilirubin 0.6 H (0-0.3) mg/dL AST 1029 H 737 H (17-59) U/L ALT 1168 H 928 H (6-50) U/L Alkaline Phosphatase 161 H 120 (38-126) U/L Albumin 3.3 L 2.5 L (3.5-5.1) g/dL Urine 02/22/25 Range/Units 23:15 Urine Color Dark yellow (Yellow) Urine Appearance Cloudy H (Clear) Urine pH 5.5 (5.0-9.0) Ur Specific [place] 1.019 (1.001-1.035) Urine Protein Trace (Negative) mg/dL Urine Glucose (UA) Negative (Negative) mg/dL Quality VTE Prophylaxis VTE prophylaxis: pharmacologic ordered Hospitalist MIPS Advance Care Plan I have confirmed that the patient's Advanced Care Plan is present, code status is documented, or surrogate decision maker is listed in patient medical record.: Yes Medication Reconciliation I have utilized all available resources to obtain, update and review the patients current medications (includes all prescriptions, OTC, herbals, cannabis, and nutritional supplements).: Yes
[2025-02-23 14:21] LABS: MRSA (PCR) NOT DETECTED (NOT DETECTE)
--- NOTE | 2025-02-23 14:27 | ADMGEN ---
This patient, Lennox Bowden, was admitted to Intensive Care Unit-2. Patient/family oriented to hospital policies and general routines including ID bracelet, bed and alarms, visiting hours, pain management, procedures, bathroom and other care routines, personal items, smoking policy, room service/diet, and visiting hours. Information on how to activate the Rapid Response Team has been discussed. Patient/Family are encouraged to report perceived risks to care and to ask questions if they do not understand what they are told or what they should do.
[2025-02-23] MEDS: PIPERACILLIN/TAZOBACTAM SOD 3.375 GM in SODIUM CHLORIDE 0.9% IV 50 ML 100 ML IVPB (14:52)
[2025-02-23] MEDS: CENTRAL LINE FLUSH 10 ML IV PUSH (14:58)
--- NOTE | 2025-02-23 15:31 | P.HP_ITS ---
H&P: HPI History of Present Illness Date/Time: 02/23/25 15:31 Chief Complaint: Shortness of breath Narrative: 69-year-old male past medical history of neck mass, CAD, COPD, CHF, presents to the hospital shortness of breath. Patient states that his shortness of breath has increased over last several does not fall on 02/21/2025. Patient has a history of COPD and wears oxygen at home. Patient presented to the emergency room on 02/22/2025 his lab work showed leukocytosis at 12.9, hemoglobin of 9.4, ABG pH 7.28, pCO2 53, PO2 of 102 bicarb of 24 on 3 L nasal cannula, sodium of 130, chloride of 92, carbon dioxide 31, BUN of 37, glucose of 200, lactic acid 4.9, total bili 2.7, AST 1029, ALT 1168, alkaline phos 161, CRP 6.2, BNP 6610, albumin 3.3, dark yellow urine with no infection. Toxicology negative for salicylates and acetaminophen, hepatitis A, B, C, influenza a and B, RSV, COVID negative. While in the ED patient was having runs of nonsustained V-tach cardiology was consulted. Electrolytes were replaced. Due to patient's heart failure and sepsis he was given 1 L fluid bolus. Given a loading dose of amiodarone and placed on drip. CT scan of the neck shows Stable enlarged right high internal jugular chain alexis mass, consistent with metastatic squamous cell carcinoma or less likely lymphoma. Mild mass effect on the right lateral aspect of the oropharynx. The right internal jugular vein is dilated approximately and face of the level of the mass. CT scan of the chest abdomen and pelvis show small left lung pleural effusion, suspected colitis, L1 compression fracture. Chest x-ray shows atelectasis versus pneumonia. EKG showed sinus tachycardia rate of 119. During the night the patient had developed respiratory distress and was placed on BiPAP. With improvement is ABG. He was started on Rocephin and doxycycline for pneumonia. Right upper quadrant ultrasound was ordered for possible acute cholecystitis and Zosyn was added. While in the ED the patient became hypotensive and we were unable to given more fluids due to CHF with decreased ejection fraction so the patient had a PICC line placed and started on Levophed. [facility] was contacted for transfer of patient for ENT, ED to ED transfer could not be completed so he will be a direct admit to the ICU. For continuity of care the patient will moves from the ED to the ICU will waiting for bed. While in the emergency room the patient's lactic did go from 4.9-7.9, LFTs have decreased, and blood gas has improved on ABG. Upon arrival to the ICU the ICU attending added vancomycin. Repeat CBC, CMP, lactic acid in PT INR ordered upon arrival to the ICU. Echocardiogram and right upper quadrant ultrasound pending. Upon arrival to ICU patient is treated for hyperkalemia per protocol. [facility] called with bed available, transfer order in place Review of Systems Review of Systems: 12 systems were reviewed and are negativ e except for as per HPI. PMFSANIYA Past Medical History Medical History (Updated 02/23/25 @ 16:13 by Lida Escobedo APRN) Anxiety about health Occlusion of right jugular vein Abnormal CT scan Abnormal finding on ultrasound Tachycardia Mass of right submandibular region BMI 26.0-26.9,adult BMI 22.0-22.9, adult Coronary artery disease Bilateral hand numbness Chronic low back pain COPD (chronic obstructive pulmonary disease) BMI 23.0-23.9, adult Arthralgia Surgical History Surgical History History of cataract surgery Family History Family History Father , lung cancer Cancer Mother No problems noted. Sibling No problems noted. Sibling Liver disease Kidney disease Social History Social History Smoking packs per day: 1 Smoking cigarettes per day: 20.0 Years smoked: 30 Smoking pack-years: 30.00 Smoking status: Former smoker Tobacco type: cigarettes Second hand tobacco smoke exposure: No Smoking end date: 11/13/18 Alcohol intake: current Substance use: never Substance use type: does not use Lack of Transportation: No Lack of Food: Never True Current Housing: Decline to Answer Concerned About Future Housing: Decline to Answer Difficulty Paying Gas/Electric Bills: Decline to Answer Difficulty Paying for Meds: Decline to Answer Currently Unemployed: Decline to Answer Education: Decline to Answer Difficulty w/ Childcare or Family Care: Decline to Answer Living arrangements: alone Occupation/Education: retired 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 Gender identity (if verbalized by the patient): Male Spiritual care concerns: No Meds Home Medications and Allergies Home Medications ?Medication ?Instructions ?Recorded ?Confirmed ?Type aspirin 81 mg chewable tablet 81 mg PO DAILY #30 tabs 12/23/20 02/23/25 Rx ipratropium 0.5 mg-albuterol 3 mg 3 ml inhalation Q6H PRN wheezing 04/29/23 02/23/25 Rx (2.5 mg base)/3 mL nebulization #90 mL soln budesonide 160 mcg-glycopyr 9 2 inh inhalation BID 02/23/25 History mcg-formot 4.8 mcg/actuation HFA inhaler (Breztri Aerosphere) docusate sodium 100 mg capsule 100 mg PO BID 09/09/23 02/23/25 History (Colace) furosemide 20 mg tablet (Lasix) 20 mg PO QAM #30 tabs 09/09/23 02/23/25 Rx thiamine HCl (vitamin B1) 100 mg 100 mg PO DAILY 09/0802/23/25 History tablet folic acid 1 mg tablet 1 mg PO DAILY #30 tabs 04/2902/23/25 Rx amiodarone 200 mg tablet 200 mg PO DAILY #90 tabs 02/23/25 Rx atorvastatin 80 mg tablet 80 mg PO DAILY #90 tabs 0609/0802/23/25 Rx sertraline 50 mg tablet 50 mg PO QHS #30 tabs 02/23/25 Rx buspirone 10 mg tablet 10 mg PO BID #60 tabs 02/23/25 Rx tramadol 50 mg tablet 50 mg PO Q6H PRN pain #30 ta bs 02/14/25 02/23/25 Rx Allergies Allergy/AdvReac Type Severity Reaction Status Date / Time lorazepam (From Ativan) AdvReac Hallucinati Verified 02/23/25 14:36 ng Vital Signs Vital Signs - 24 hr 02/22/25 22:39 02/22/25 23:10 02/22/25 23:15 Temperature 97.4 F L Pulse Rate 124 H 113 H Respiratory Rate 20 26 H Blood Pressure 139/78 Pulse Oximetry 93 95 Oxygen Delivery Nasal Cannula Nasal Cannula Oxygen Flow Rate 3 3 02/22/25 23:54 02/22/25 23:55 02/23/25 00:23 Temperature Pulse Rate 123 H 148 H Respiratory Rate Blood Pressure 103/85 Pulse Oximetry 98 Oxygen Delivery Nasal Cannula Oxygen Flow Rate 3 02/23/25 00:35 02/23/25 00:44 02/23/25 00:47 Temperature Pulse Rate 116 H 125 H 106 H Respiratory Rate Blood Pressure 103/82 103/82 Pulse Oximetry Oxygen Delivery Oxygen Flow Rate 02/23/25 02:07 02/23/25 02:10 02/23/25 02:18 Temperature Pulse Rate 120 H 118 H Respiratory Rate 26 H 30 H Blood Pressure 113/86 Pulse Oximetry 100 88 L 100 Oxygen Delivery BiPAP Non-Rebreather Mask Oxygen Flow Rate 15 02/23/25 03:21 02/23/25 03:58 02/23/25 04:22 Temperature Pulse Rate 101 H 114 H 106 H Respiratory Rate 26 H 24 H Blood Pressure 105/71 54/39 L 92/79 L Pulse Oximetry 98 100 Oxygen Delivery Oxygen Flow Rate 02/23/25 04:35 02/23/25 04:50 02/23/25 04:56 Temperature 95.5 F L 95.1 F L Pulse Rate 117 H 108 H Respiratory Rate 30 H Blood Pressure 88/70 L 91/74 L Pulse Oximetry 100 Oxygen Delivery Oxygen Flow Rate 02/23/25 05:06 02/23/25 05:10 02/23/25 05:15 Temperature 95.1 F L Pulse Rate 113 H Respiratory Rate 30 H Blood Pressure 98/74 L 101/71 Pulse Oximetry Oxygen Delivery Oxygen Flow Rate 02/23/25 05:15 02/23/25 05:20 02/23/25 05:21 Temperature Pulse Rate 112 H 120 H 103 H Respiratory Rate 31 H 26 H 23 H Blood Pressure 112/79 116/80 Pulse Oximetry 100 Oxygen Delivery BiPAP Oxygen Flow Rate 02/23/25 05:25 02/23/25 05:30 02/23/25 05:35 Temperature Pulse Rate 111 H 117 H 125 H Respiratory Rate 29 H 27 H 29 H Blood Pressure 112/80 115/93 H 107/93 H Pulse Oximetry Oxygen Delivery Oxygen Flow Rate 02/23/25 05:40 02/23/25 05:45 02/23/25 05:50 Temperature Pulse Rate 116 H 122 H 124 H Respiratory Rate 31 H 36 H 28 H Blood Pressure 102/85 113/90 106/79 Pulse Oximetry 93 Oxygen Delivery Oxygen Flow Rate 02/23/25 05:55 02/23/25 05:56 02/23/25 06:00 Temperature 90.1 F L 93.6 F L Pulse Rate 117 H 120 H 108 H Respiratory Rate 31 H 32 H 35 H Blood Pressure 108/96 H 111/86 Pulse Oximetry 84 L Oxygen Delivery Oxygen Flow Rate 02/23/25 06:01 02/23/25 06:05 02/23/25 06:06 Temperature 93.8 F L 94.4 F L 94.5 F L Pulse Rate 120 H 126 H 119 H Respiratory Rate 31 H 28 H 31 H Blood Pressure 107/81 Pulse Oximetry 100 Oxygen Delivery Oxygen Flow Rate 02/23/25 06:10 02/23/25 06:15 02/23/25 06:16 Temperature 94.9 F L 95.2 F L 95.3 F L Pulse Rate 121 H 125 H 125 H Respiratory Rate 31 H 29 H 32 H Blood Pressure 99/84 L 116/84 Pulse Oximetry Oxygen Delivery Oxygen Flow Rate 02/23/25 06:20 02/23/25 06:25 02/23/25 06:30 Temperature 95.4 F L 95.6 F L 95.7 F L Pulse Rate 123 H 124 H 124 H Respiratory Rate 35 H 33 H 36 H Blood Pressure 107/77 102/91 H 107/93 H Pulse Oximetry Oxygen Delivery Oxygen Flow Rate 02/23/25 06:31 02/23/25 06:35 02/23/25 06:41 Temperature 95.7 F L 95.8 F L 95.9 F L Pulse Rate 112 H 118 H 113 H Respiratory Rate 30 H 25 H 26 H Blood Pressure 106/85 119/86 Pulse Oximetry Oxygen Delivery Oxygen Flow Rate 02/23/25 06:45 02/23/25 06:46 02/23/25 06:48 Temperature 96.0 F L 96.0 F L 96.0 F L Pulse Rate 123 H 117 H Respiratory Rate 24 H 26 H Blood Pressure 118/87 Pulse Oximetry Oxygen Delivery Oxygen Flow Rate 02/23/25 06:50 02/23/25 06:55 02/23/25 07:00 Temperature 96.1 F L 96.2 F L 96.2 F L Pulse Rate 122 H 121 H 124 H Respiratory Rate 26 H 27 H 26 H Blood Pressure 109/86 117/84 119/88 Pulse Oximetry 100 100 Oxygen Delivery Oxygen Flow Rate 02/23/25 07:05 02/23/25 07:15 02/23/25 07:20 Temperature 96.3 F L 96.5 F L 96.6 F L Pulse Rate 120 H 113 H 127 H Respiratory Rate 28 H 26 H 28 H Blood Pressure 110/82 106/80 103/85 Pulse Oximetry 100 100 100 Oxygen Delivery Oxygen Flow Rate 02/23/25 07:26 02/23/25 07:45 02/23/25 07:50 Temperature 96.6 F L 96.9 F L 97.0 F L Pulse Rate 124 H 127 H 124 H Respiratory Rate 27 H 35 H 34 H Blood Pressure 107/83 106/76 101/80 Pulse Oximetry 100 100 100 Oxygen Delivery Oxygen Flow Rate 02/23/25 07:57 02/23/25 08:00 02/23/25 08:21 Temperature 97.1 F L Pulse Rate 136 H 120 H 124 H Respiratory Rate 28 H 38 H Blood Pressure 104/88 113/79 Pulse Oximetry 100 100 Oxygen Delivery BiPAP Oxygen Flow Rate 02/23/25 08:30 02/23/25 08:45 02/23/25 08:50 Temperature 97.4 F L 97.6 F 97.7 F Pulse Rate 123 H 139 H 122 H Respiratory Rate 34 H 33 H 33 H Blood Pressure 104/86 96/65 L 111/88 Pulse Oximetry 100 Oxygen Delivery Oxygen Flow Rate 02/23/25 08:55 02/23/25 09:00 02/23/25 09:05 Temperature 97.7 F 97.8 F 97.8 F Pulse Rate 126 H 118 H 114 H Respiratory Rate 31 H 41 H 24 H Blood Pressure 97/81 L 101/79 105/80 Pulse Oximetry 96 Oxygen Delivery Oxygen Flow Rate 02/23/25 09:10 02/23/25 09:15 02/23/25 09:20 Temperature 97.8 F 97.9 F 97.9 F Pulse Rate 122 H 118 H 129 H Respiratory Rate 33 H 25 H 31 H Blood Pressure 102/91 H 105/79 96/72 L Pulse Oximetry Oxygen Delivery Oxygen Flow Rate 02/23/25 09:25 02/23/25 09:30 02/23/25 09:33 Temperature 98.0 F 98.0 F Pulse Rate 127 H 126 H 111 H Respiratory Rate 28 H 28 H 27 H Blood Pressure 99/78 L 108/75 Pulse Oximetry 99 Oxygen Delivery BiPAP Oxygen Flow Rate 02/23/25 09:45 02/23/25 10:40 02/23/25 10:45 Temperature 98.1 F 98.3 F 98.3 F Pulse Rate 119 H 113 H 113 H Respiratory Rate 22 H 24 H 27 H Blood Pressure 96/74 L 101/72 100/81 Pulse Oximetry 100 Oxygen Delivery Oxygen Flow Rate 02/23/25 10:50 02/23/25 10:55 02/23/25 11:00 Temperature 98.3 F 98.3 F 98.3 F Pulse Rate 126 H 118 H 113 H Respiratory Rate 21 H 33 H 34 H Blood Pressure 95/69 L 98/77 L 99/77 L Pulse Oximetry Oxygen Delivery Oxygen Flow Rate 02/23/25 11:05 02/23/25 11:10 02/23/25 11:15 Temperature 98.3 F 98.4 F 98.4 F Pulse Rate 127 H 115 H 139 H Respiratory Rate 31 H 34 H 27 H Blood Pressure 106/80 92/66 L 95/69 L Pulse Oximetry Oxygen Delivery Oxygen Flow Rate 02/23/25 11:20 02/23/25 11:25 02/23/25 11:30 Temperature 98.4 F 98.4 F 98.4 F Pulse Rate 116 H 121 H 120 H Respiratory Rate 31 H 25 H 32 H Blood Pressure 103/77 108/79 90/72 L Pulse Oximetry 80 L Oxygen Delivery Oxygen Flow Rate 02/23/25 11:33 02/23/25 11:35 02/23/25 11:41 Temperature 98.4 F 98.4 F Pulse Rate 130 H 112 H 123 H Respiratory Rate 31 H 32 H 31 H Blood Pressure 102/66 85/69 L Pulse Oximetry 92 Oxygen Delivery BiPAP Oxygen Flow Rate 02/23/25 11:45 02/23/25 11:50 02/23/25 11:55 Temperature 98.4 F 98.4 F 98.5 F Pulse Rate 111 H 128 H 124 H Respiratory Rate 26 H 26 H 27 H Blood Pressure 99/70 L 95/76 L 94/59 L Pulse Oximetry Oxygen Delivery Oxygen Flow Rate 02/23/25 12:00 02/23/25 12:05 02/23/25 12:22 Temperature 98.5 F 98.5 F Pulse Rate 116 H 107 H 122 H Respiratory Rate 30 H 32 H 31 H Blood Pressure 87/79 L 105/77 Pulse Oximetry 98 100 Oxygen Delivery BiPAP Oxygen Flow Rate 02/23/25 12:48 02/23/25 13:40 02/23/25 14:15 Temperature Pulse Rate 126 H Respiratory Rate 37 H Blood Pressure 113/67 Pulse Oximetry 100 Oxygen Delivery BiPAP BiPAP Oxygen Flow Rate Exam Narrative: General: Ill-appearing HEENT: normocephalic, atraumatic. Mucous membranes moist. EOMI, PERRLA, bilateral sclera anicteric, no conjunctival injection. Neck supple without JVD, lymphadenopathy, or bruit. Left-sided neck mass Respiratory: Diminished on BiPAP Cardiovascular: Tachycardic Regular rate and rhythm, normal S1-S2 upon ascultation. No murmurs, rubs, or clicks. PMI is nondisplaced, capillary refill less than 3 second. Abdomen: Soft, round, no pulsatile masses, nondistended and nontender. No rebound, no guarding. No CVA tenderness, no hepatosplenomegaly. Bowel sounds present to all four quadrants. No high pitch or tinkling sounds, resonant to percussion. Extremities: No cyanosis, clubbing, or edema present. Pulses are palpable 2/2. Active ROM to all four extremities. Neuro: Alert and orientated x 4. PERRLA. Cranial nerves 2-12 intact without focal deficit. Skin: Warm, dry, and intact, without rash, erythema, or lesion. Psych: pleasant, cooperative, normal speech, normal affect, no hallucinations, no dysarthia H&P: Results Labs Labs: Short CBC 02/22/25 Range/Units 23:15 WBC 12.9 H (4.5-10.0) K/mm3 Hgb 9.4 L (14.0-18.0) g/dL Hct 30.4 L (42.0-52.0) % Plt Count 163 (150-375) k/mm3 BMP 02/22/25 02/23/25 23:15 01:42 Sodium 130 L 129 L Potassium 4.0 4.4 Chloride 92 L 95 L Carbon Dioxide 31 H 24 BUN 37 H D 36 H Creatinine 1.06 1.02 Glucose 200 H 188 H Calcium 8.7 7.7 L Cardiac Enzymes 02/22/25 02/23/25 02/23/25 Range/Units 23:15 01:57 08:43 Troponin I 0.014 0.012 0.022 D (0.000-0.034) ng/mL Liver Function 02/22/25 02/23/25 Range/Units 23:15 01:42 Total Bilirubin 2.7 H 2.4 H (0.2-1.3) mg/dL Direct Bilirubin 0.6 H (0-0.3) mg/dL AST 1029 H 737 H (17-59) U/L ALT 1168 H 928 H (6-50) U/L Alkaline Phosphatase 161 H 120 (38-126) U/L Albumin 3.3 L 2.5 L (3.5-5.1) g/dL Urine 02/22/25 Range/Units 23:15 Urine Color Dark yellow (Yellow) Urine Appearance Cloudy H (Clear) Urine pH 5.5 (5.0-9.0) Ur Specific [place] 1.019 (1.001-1.035) Urine Protein Trace (Negative) mg/dL Urine Glucose (UA) Negative (Negative) mg/dL Assessment and Plan Assessment and plan (1) Severe sepsis: Code(s): A41.9 - Sepsis, unspecified organism; R65.20 - Severe sepsis without septic shock Status: Acute Assessment and Plan: Admit to ICU Map goal above 65 Blood cultures pending IV Rocephin, doxy, and vancomycin Gallbladder ultrasound pending (2) Acute respiratory failure: Code(s): J96.00 - Acute respiratory failure, unspecified whether with hypoxia or hypercapnia Status: Acute Assessment and Plan: COPD exacerbation pneumonia IV Rocephin doxy Patient states that he is okay for intubation but wants to remain and no CPR (3) Mass of right side of neck: Code(s): R22.1 - Localized swelling, mass and lump, neck Status: Acute Assessment and Plan: Transfer to [facility] for ENT Patient will transfer when ICU bed is available (4) Acute hypotension: Code(s): I95.9 - Hypotension, unspecified Status: Acute Assessment and Plan: PICC line placed Levophed to keep map above 65 (5) V-tach: Code(s): I47.20 - Ventricular tachycardia, unspecified Status: Acute Assessment and Plan: Cardiology consulted Amiodarone drip (6) Acute CHF (congestive heart failure): Code(s): I50.9 - Heart failure, unspecified Status: Acute Assessment and Plan: Cardiology consulted Echo with bubble study pending Currently unable to diurese due to severe hypotension on pressors (7) Compression fx, lumbar spine: Code(s): S32.000A - Wedge compression fracture of unspecified lumbar vertebra, initial encounter for closed fracture Status: Acute Assessment and Plan: Patient states that he had a fall on 02/21/2025 (8) Transaminitis: Code(s): R74.01 - Elevation of levels of liver transaminase levels Status: Acute Assessment and Plan: Liver enzymes trending down, likely shock liver Daily CMP Plan [facility] called with bed available patient was transferred with EMS. Quality VTE Prophylaxis VTE prophylaxis: mechanical ordered Hospitalist MIPS Advance Care Plan I have confirmed that the patient's Advanced Care Plan is present, code status is documented, or surrogate decision maker is listed in patient medical record.: Yes Medication Reconciliation The patient is not eligible for med reconciliation; the patient is in a emergent medical situation where delaying treatment would jeopardize the patients health.: No
[2025-02-23] MEDS: SODIUM BICARBONATE 8.4% 50 MEQ/50 ML SYRINGE IV PUSH ×2 (15:46→16:43)
[2025-02-23] MEDS: SODIUM BICARBONATE 8.4% 150 MEQ in WATER, STERILE FOR INJECTION 950 ML 75 MEQ IV CONT (15:47)
[2025-02-23] MEDS: ENOXAPARIN 40 MG/0.4 ML SYRINGE SUB-Q (15:47)
[2025-02-23] MEDS: PANTOPRAZOLE SODIUM IV 40 MG VIAL IV PUSH (15:47)
[2025-02-23 15:52] LABS: Hematocrit 27.1 % (42.0-52.0); Hemoglobin 8.4 g/dL (14.0-18.0); Immature Granulocyte Percent A 0.5 % (0-0.5); Lymphocytes Absolute Auto 0.44 K/mm3 (0.9-3.2); Mean Corpuscular HGB Conc 31.0 g/dl (32-36); Mean Corpuscular Hemoglobin 24.9 pg (26-34); Mean Corpuscular Volume 80.2 fl (80-100); Nucleated Red Blood Cells Absolute Auto 0.070 K/mm3 (0.0-0.012); Nucleated Red Blood Cells Perc 0.7 % (0.0-0.2); Platelet Count Result 132 k/mm3 (150-375); Red Blood Count 3.38 M/mm3 (4.6-6.20); White Blood Count 10.0 K/mm3 (4.5-10.0)
[2025-02-23 16:03] LABS: INR 2.8; Prothrombin Time 28.7 Seconds (11.1-14.7)
[2025-02-23 16:04] LABS: Partial Thromboplastin Time 36.4 Seconds (22.3-36.8)
[2025-02-23 16:11] LABS: CRP 5.4 mg/dL (<1.0); Magnesium 2.7 mg/dL (1.6-2.3)
[2025-02-23 16:15] LABS: Albumin Level 2.8 g/dL (3.5-5.1); Alkaline Phosphatase 157 U/L (38-126); Anion Gap 14 mmol/L (4-12); Bilirubin,Total 2.7 mg/dL (0.2-1.3); Blood Urea Nitrogen 36 mg/dL (9-20); Calcium 7.8 mg/dL (8.4-10.2); Carbon Dioxide 17 mmol/L (22-30); Chloride 100 mmol/L (98-107); Creatine Kinase 108 U/L (55-170); Estimated CRCL calculation 40 ml/min; Estimated Glomerular Filt Rate 47; Glucose 154 mg/dL (65-110); Potassium 5.1 mmol/L (3.4-5.0); Sodium 131 mmol/L (137-145); Total Protein 5.9 g/dL (6.3-8.2)
[2025-02-23] MEDS: ALBUTEROL SULFATE NEB 2.5 MG/3 ML INH 10 MG INHALATION (16:20)
[2025-02-23 16:36] LABS: Alanine Aminotransferase 1053 U/L (6-50); Aspartate Amino Transferase 1180 U/L (17-59)
[2025-02-23] MEDS: HYDROCORTISONE SODIUM SUCCINATE 100 MG/2 ML VIAL IV PUSH (16:43)
[2025-02-23] MEDS: VANCOMYCIN 1,750 MG/NS 500 ML 1,750 MG/500 ML BAG 250 MG IVPB (16:43)
[2025-02-23] MEDS: INSULIN HUMAN REGULAR (*BKC) 100 UNITS/ML 10 UNITS IV PUSH (16:43)
[2025-02-23] MEDS: DEXTROSE 50% 25 GM/50 ML SYRINGE IV PUSH (16:43)
[2025-02-23] MEDS: CALCIUM GLUC 2,000 MG/NS 100ML 2,000 MG/100 ML BAG 100 MG IVPB (17:00)
[2025-02-23] MEDS: ALBUMIN HUMAN 25% 25 GM/100 ML 100 ML IVPB (17:57)
[2025-02-23 18:04] LABS: Anion Gap 14 mmol/L (4-12); Blood Urea Nitrogen 36 mg/dL (9-20); Calcium 8.4 mg/dL (8.4-10.2); Carbon Dioxide 21 mmol/L (22-30); Chloride 99 mmol/L (98-107); Estimated CRCL calculation 40 ml/min; Estimated Glomerular Filt Rate 47; Glucose 177 mg/dL (65-110); Potassium 4.2 mmol/L (3.4-5.0); Sodium 134 mmol/L (137-145)
--- NOTE | 2025-02-23 18:46 | PC.NURSE ---
Report given to EMS. RN tried to call family twice to let them know patient is headed to [facility].
--- NOTE | 2025-03-03 16:45 | P.TS_ITS ---
Transfer Discharge Sum: Prov Provider Date of admission: 02/23/25 14:01 Primary care physician: Durga Syed MD Admitting clinician: Joseph Toledo MD Consults: 02/22/25 Consult to Physician Routine Comment: Consulting Provider: Rody Kenney call center dispatcher/MD group to consult: Cardiology Reason for consultation: Nonsustained V-tach Has provider been notified: Yes 02/23/25 Consult to Physician Routine Comment: Consulting Provider: Barb Peguero Reason for consultation: ICU admission Has provider been notified: Yes DS: Admitting Diagnosis Discharge Date 02/23/25 Admitting Diagnosis Acute respiratory distress from acute CHF DS: Discharge Diagnosis Discharge Diagnosis (1) Severe sepsis: Code(s): A41.9 - Sepsis, unspecified organism; R65.20 - Severe sepsis without septic shock Status: Acute Assessment and Plan: Admit to ICU Map goal above 65 Blood cultures pending IV Rocephin, doxy, and vancomycin Gallbladder ultrasound pending (2) Acute respiratory failure: Code(s): J96.00 - Acute respiratory failure, unspecified whether with hypoxia or hypercapnia Status: Acute Assessment and Plan: COPD exacerbation pneumonia IV Rocephin doxy Patient states that he is okay for intubation but wants to remain and no CPR (3) Mass of right side of neck: Code(s): R22.1 - Localized swelling, mass and lump, neck Status: Acute Assessment and Plan: Transfer to U for ENT Patient will transfer when ICU bed is available (4) Acute hypotension: Code(s): I95.9 - Hypotension, unspecified Status: Acute Assessment and Plan: PICC line placed Levophed to keep map above 65 (5) V-tach: Code(s): I47.20 - Ventricular tachycardia, unspecified Status: Acute Assessment and Plan: Cardiology consulted Amiodarone drip (6) Acute CHF (congestive heart failure): Code(s): I50.9 - Heart failure, unspecified Status: Acute Assessment and Plan: Cardiology consulted Echo with bubble study pending Currently unable to diurese due to severe hypotension on pressors (7) Compression fx, lumbar spine: Code(s): S32.000A - Wedge compression fracture of unspecified lumbar vertebra, initial encounter for closed fracture Status: Acute Assessment and Plan: Patient states that he had a fall on 02/21/2025 (8) Transaminitis: Code(s): R74.01 - Elevation of levels of liver transaminase levels Status: Acute Assessment and Plan: Liver enzymes trending down, likely shock liver Daily CMP Plan [facility] called with bed available patient was transferred with EMS. Transfer Discharge Sum: Med Medications Active and Home Medications: Home Medications aspirin 81 mg chewable tablet 81 mg PO DAILY #30 tabs 12/23/20 [Rx Confirmed 02/23/25] ipratropium 0.5 mg-albuterol 3 mg (2.5 mg base)/3 mL nebulization soln 3 ml inhalation Q6H PRN wheezing #90 mL 04/29/23 [Rx Confirmed 02/23/25] budesonide 160 mcg-glycopyr 9 mcg-formot 4.8 mcg/actuation HFA inhaler (Breztri Aerosphere) 2 inh inhalation BID 09/09/23 [History Confirmed 02/23/25] docusate sodium 100 mg capsule (Colace) 100 mg PO BID 09/09/23 [History Confirmed 02/23/25] furosemide 20 mg tablet (Lasix) 20 mg PO QAM #30 tabs 09/09/23 [Rx Confirmed 02/23/25] thiamine HCl (vitamin B1) 100 mg tablet 100 mg PO DAILY 09/09/23 [History Confirmed 02/23/25] folic acid 1 mg tablet 1 mg PO DAILY #30 tabs 04/29/24 [Rx Confirmed 02/23/25] amiodarone 200 mg tablet 200 mg PO DAILY #90 tabs 08/04/24 [Rx Confirmed 02/23/25] atorvastatin 80 mg tablet 80 mg PO DAILY #90 tabs 10/18/24 [Rx Confirmed 02/23/25] sertraline 50 mg tablet 50 mg PO QHS #30 tabs 01/30/25 [Rx Confirmed 02/23/25] buspirone 10 mg tablet 10 mg PO BID #60 tabs 01/31/25 [Rx Confirmed 02/23/25] tramadol 50 mg tablet 50 mg PO Q6H PRN pain #30 tabs 02/14/25 [Rx Confirmed 02/23/25] Transfer Discharge Sum: Hosp Hospital Course Hospital course: 69-year-old male past medical history of neck mass, CAD, COPD, CHF, presents to the hospital shortness of breath. Patient states that his shortness of breath has increased over last several does not fall on 02/21/2025. Patient has a history of COPD and wears oxygen at home. Patient presented to the emergency room on 02/22/2025 his lab work showed leukocytosis at 12.9, hemoglobin of 9.4, ABG pH 7.28, pCO2 53, PO2 of 102 bicarb of 24 on 3 L nasal cannula, sodium of 130, chloride of 92, carbon dioxide 31, B UN of 37, glucose of 200, lactic acid 4.9, total bili 2.7, AST 1029, ALT 1168, alkaline phos 161, CRP 6.2, BNP 6610, albumin 3.3, dark yellow urine with no infection. Toxicology negative for salicylates and acetaminophen, hepatitis A, B, C, influenza a and B, RSV, COVID negative. While in the ED patient was having runs of nonsustained V-tach cardiology was consulted. Electrolytes were replaced. Due to patient's heart failure and sepsis he was given 1 L fluid bolus. Given a loading dose of amiodarone and placed on drip. CT scan of the neck shows Stable enlarged right high internal jugular chain alexis mass, consistent with metastatic squamous cell carcinoma or less likely lymphoma. Mild mass effect on the right lateral aspect of the oropharynx. The right internal jugular vein is dilated approximately and face of the level of the mass. CT scan of the chest abdomen and pelvis show small left lung pleural effusion, suspected colitis, L1 compression fracture. Chest x-ray shows atel ectasis versus pneumonia. EKG showed sinus tachycardia rate of 119. During the night the patient had developed respiratory distress and was placed on BiPAP. With improvement is ABG. He was started on Rocephin and doxycycline for pneumonia. Right upper quadrant ultrasound was ordered for possible acute cholecystitis and Zosyn was added. While in the ED the patient became hypotensive and we were unable to given more fluids due to CHF with decreased ejection fraction so the patient had a PICC line placed and started on Levophed. [facility] was contacted for transfer of patient for ENT, ED to ED transfer could not be completed so he will be a direct admit to the ICU. For continuity of care the patient will moves from the ED to the ICU will waiting for bed. While in the emergency room the patient's lactic did go from 4.9-7.9, LFTs have decreased, and blood gas has improved on ABG. Upon arrival to the ICU the ICU attending added vancomycin. Repeat CBC, CMP, lactic acid in PT INR ordered upon arrival to the ICU. Echocardiogram and right upper quadrant ultrasound pending. Upon arrival to ICU patient is treated for hyperkalemia per protocol. [facility] called with bed available, transfer order in place Bed was available at [facility] within a couple hours and patient was transferred per EMS Patient Condition: Critical Time Spent with Patient Time attestation: Total time spent providing and/or coordinating transfer services: Total time spent: Greater than 30 minutes Exam Narrative: General: Ill-appearing HEENT: normocephalic, atraumatic. Mucous membranes moist. EOMI, PERRLA, bilateral sclera anicteric, no conjunctival injection. Neck . Left-sided neck mass Respiratory: Diminished on BiPAP Cardiovascular: Tachycardic Regular rate and rhythm, normal S1-S2 upon ascultation. No murmurs, rubs, or clicks. PMI is nondisplaced, capillary refill less than 3 second. Abdomen: Soft, round, no pulsatile masses, nondistended and nontender. No rebo und, no guarding. No CVA tenderness, no hepatosplenomegaly. Bowel sounds present to all four quadrants. No high pitch or tinkling sounds, resonant to percussion. Extremities: No cyanosis, clubbing, or edema present. Pulses are palpable 2/2. Active ROM to all four extremities. Neuro: Alert and orientated x 4. PERRLA. Cranial nerves 2-12 intact without focal deficit. Skin: Warm, dry, and intact, without rash, erythema, or lesion. Psych: pleasant, cooperative, normal speech, normal affect, no hallucinations, no dysarthia DS: Data Imaging Radiologist's impression: [facility] [address] [place] [id number] Scan Report Signed Patient: Lennox Bowden : 1955 MR#: [id number] Age: 69 Acct:[id number] Loc: [facility] ADM Date: 02/22/[address]: Ordering Physician: Sami Corado DO Date of Service: 02/22/25 Procedure(s): CTA chest PE abdomen pel Accession Number(s): [id number] cc: Sami Corado DO; Durga Syed MD~ CTA CHEST CT ABDOMEN PELVIS CLINICAL HISTORY: dyspnea, tachypnea . COMPARISON: Chest x-ray hours prior TECHNIQUE: Helical CT performed from thoracic inlet to symphysis pubis 100 mL Omnipaque 350 Coronal, sagittal reformats. Multiplanar MIPS CT images acquired with automatic exposure control for dose reduction DLP: 1196 mGy-cm FINDINGS: CHEST- Thoracic Aorta: No dissection. Upper limit of normal in size. Atherosclerotic disease Pulmonary arteries: Normal caliber. No PE. Lungs/Pleura: Emphysema. Eventration left hemidiaphragm, associated basilar atelectasis. Small left effusion Heart: Cardiomegaly. Coronary artery calcifications. Tracheobronchial tree: Patent. Nodes: No enlarged nodes. Bones: No acute bony abnormality. Soft tissues: Unremarkable. ABDOMEN/PELVIS- Liver: Steatosis. Gallbladder: Stones. Spleen: Unremarkable. Pancreas: A few calcifications within head. Adrenal glands: Unremarkable. Kidneys: Cysts. Right kidney- No hydronephrosis. No renal stones. Left kidney- No hydronephrosis. No renal stones. Distal esophagus/stomach: Unremarkable. Small bowel loops: Normal caliber and wall thickness. Colon: Short segment wall thickening descending segment. Normal RLQ appendix. Nodes: No enlarged nodes. Peritoneum: No ascites. No free air. Urinary bladder: Unremarkable. Prostate: Unremarkable. Left hydrocele. Bones: Superior endplate compression fracture L1. Soft tissues: Small umbilical hernia with fat. Abdominal aorta: Unremarkable. Atherosclerotic disease. IVC: Unremarkable. Main portal vein, SMV: Patent. IMPRESSION: CHEST- 1. No acute cardiopulmonary findings. 2. Except small left pleural effusion. ABDOMEN/PELVIS- 1. Suspect colitis. Recommend colonoscopy given focal thickening within descending segment. 2. Otherwise no acute abnormality within abdomen or pelvis. 3. L1 compression fracture. 4. Additional findings per above.
== END 2025-02-23 19:02 | disposition short-term general hospital (02) | DRG 871 ==
LOC: ANHED 02-23 03:14 → ANHICU 02-23 13:47
PROVIDERS: Emergency Medicine; Internal Medicine; Admitting Provider Family Medicine; Emergency Provider Student in an Organized Health Care Education/Training Program; PCP Family Medicine; Visit Provider Nurse Practitioner Gerontology
DX: A41.9 Sepsis, unspecified organism (principal); J18.9 Pneumonia, unspecified organism; K72.00 Acute and subacute hepatic failure without coma; J96.02 Acute respiratory failure with hypercapnia; J44.1 Chronic obstructive pulmonary disease with (acute) exacerbation; J44.0 Chronic obstructive pulmonary disease with (acute) lower respiratory infection; I47.20 Ventricular tachycardia, unspecified; R65.20 Severe sepsis without septic shock; R22.1 Localized swelling, mass and lump, neck; I25.10 Atherosclerotic heart disease of native coronary artery without angina pectoris; Z87.891 Personal history of nicotine dependence
CPT/HCPCS: 36415; 36600; 70491; 71045; 71275; 74177; 76705; 80048; 80053; 80074; 80143; 80179; 81001; 82248; 82375; 82550; 82805; 83050; 83605; 83690; 83735; 83880; 84100; 84439; 84443; 84480; 84484; 85018; 85025; 85610; 85730; 86140; 87040; 87637; 87641; 93005; 93306; 94640; 96361; 96365; 96366; 96367; 96375; 96376; 99291; A9270; C1751; G0378; J0283; J0613; J0696; J1650; J1720; J1815; J1938; J2003; J2470; J2543; J2919; J3373; J3475; J7030; J7120; P9047; Q9967